=== PATIENT | male | born 1945 | race Caucasian/White ===

== ENCOUNTER 2019-05-12 21:56 | Inpatient (IN) ==
[2019-05-12] MEDS ORDERED: LACTATED RINGERS 1,000 ML IV ONE (22:03)
[2019-05-12] MEDS ORDERED: ONDANSETRON 4 MG/2 ML VIAL IV ONE (22:04)
--- NOTE | 2019-05-12 22:12 | Emergency Department Note ---
General Adult HPI - General Chief complaint: Bleeding Other Stated complaint: blood in vomit Time Seen by Provider: 05/12/19 22:02 Source: patient, family Mode of arrival: ambulatory Limitations: no limitations - History of Present Illness HPI Narrative: This patient had an episode of vomiting tonight that might of been somewhat bloody and has had some black stools after starting iron 3 days ago. He was seen here a week ago with a hemoglobin of 5.8 it was unclear other than iron deficiency. His stool was Hemoccult negative at that time. He did receive 4 units of blood. There was a plan to have endoscopy performed. That has not happened yet. His stool tonight is guaiac positive. He has had no vomiting here in the emergency room. He also has no abdominal pain. - Related Data Home Medications Medication Instructions Recorded Confirmed coenzyme Q10 300 mg capsule 300 mg PO QDAY 06/17/15 05/07/19 glucosamine 125 mg-chondroitn 100 1 tab PO QDAY tab 11/30/16 05/07/19 mg-cartilg 40 mg-colagn 10 mg tablet multivitamin 1 tab PO QDAY 12/05/17 05/07/19 Previous Rx's Medication Instructions Recorded red yeast rice 600 mg tablet 1,200 mg PO QDAY #180 tab 09/22/17 hydrochlorothiazide 12.5 mg capsule 12.5 mg PO QDAY #90 cap 12/06/18 omeprazole 20 mg capsule,delayed 20 mg PO QDAY #90 cap 12/06/18 release Allergies Allergy/AdvReac Type Severity Reaction Status Date / Time ezetimibe [From Zetia] Allergy Unknown Unknown Verified 05/12/19 21:59 fenofibrate Allergy Unknown Unknown Verified 05/12/19 21:59 hydrocodone Allergy Unknown Hallucinati Verified 05/12/19 21:59 ng Ctqgukd-Tjh-Kxs Reductase Allergy Unknown Unknown Verified 05/12/19 21:59 Inhibitor Review of Systems All systems ED: reviewed and negative except as stated. Past Medical History - Past Medical History Surgical history ED: Reports: non-contributory - Social History smoking status: Never smoker Physical Exam Limitations: no limitations General appearance: alert Head: atraumatic Eye: Present: normal appearance ENT: Present: normal exam Neck: Present: normal inspection Chest: Present: normal inspection Respiratory: Present: normal lung sounds bilaterally Cardiovascular: Present: normal rhythm, normal heart sounds Abdominal: Present: soft. Absent: distention, tenderness Rectal: Present: heme (+) stool, black stool. Absent: fecal impaction Neurological: Present: alert Psychiatric: Present: normal affect Skin: Present: warm, dry Course Vital Signs Temperature 97.0 F 05/12/19 21:56 Pulse Rate 90 05/12/19 21:56 Respiratory Rate 16 05/12/19 21:56 Blood Pressure 132/71 05/12/19 21:56 Pulse Oximetry (%) 100 05/12/19 21:56 Temperature 97.0 F 05/12/19 21:56 Pulse Rate 84 05/12/19 23:00 Respiratory Rate 19 05/12/19 23:00 Blood Pressure 107/62 05/12/19 23:00 Pulse Oximetry (%) 95 05/12/19 23:00 Medical Decision Making - MDM Narrative Medical decision making narrative: Patient's hemoglobin is dropped to 7.8 from 9.8 last week. He was given a liter of fluid and felt well. I discussed the case with her surgeon Dr. Kline who is willing to do endoscopy in the morning. Dr. Yeager will admit him. - Lab Data Lab results reviewed: Yes I reviewed the patient's lab results. Result diagrams: 05/12/19 22:13 05/12/19 22:13 Lab Results 05/12/19 05/12/19 Range/Units 22:13 22:13 WBC 8.2 (4.50-11.00) K/mcL RBC 3.32 L (4.63-6.08) M/mcL Hgb 7.8 L (13.7-17.5) g/dL Hct 26.4 L (40.1-51.0) % POC Hct 26.0 L (41.0-55.0) % MCV 79.5 L (80.0-100.0) fL MCH 23.5 L (26.0-34.0) pg MCHC 29.5 L (31.0-36.0) g/dL RDW 21.2 H (11.5-14.5) % Plt Count 306 (140-440) K/mcL MPV 9.2 (7.4-10.4) fL Gran % 75.4 (38.0-78.0) % Lymph % (Auto) 15.5 (15.5-49.0) % [place] % (Auto) 7.7 (1.0-12.0) % Eos % (Auto) 0.7 (0.0-7.0) % Baso % (Auto) 0.7 (0.0-2.0) % Gran # 6.14 (1.80-8.00) K/mcL Lymph # (Auto) 1.26 L (1.50-4.80) K/mcL [place] # (Auto) 0.63 (0.10-0.90) K/mcL Eos # (Auto) 0.06 (0.00-0.70) K/mcL Baso # (Auto) 0.06 (0.00-0.30) K/mcL POC Sodium 141 (133-145) mmol/L Sodium 137 (133-145) mmol/L POC Potassium 4.0 (3.3-5.1) mmol/L Potassium 3.9 (3.3-5.1) mmol/L POC Chloride 105 (96-108) mmol/L Chloride 101 (96-108) mmol/L Carbon Dioxide 25 (22-30) mmol/L POC Total CO2 26 (22-30) mmol/L Anion Gap 11.0 (8-16) POC BUN 25 H (8-23) mg/dl BUN 24 H (8-23) mg/dl Creatinine 1.2 (0.7-1.2) mg/dl POC Creatinine 1.1 (0.7-1.2) mg/dl GFR Calculation 59 Glucose 151 H (70-105) mg/dL POC Glucose 145 H (70-105) mg/dL Calcium 8.5 L (8.6-10.4) mg/dl POC WB Ioniz Calcium 1.17 (1.16-1.32) mmol/L Total Bilirubin 0.3 (0.0-1.0) mg/dL AST 17 (0-37) U/l ALT 13 (0-40) U/l Alkaline Phosphatase 70 (39-117) U/L Total Protein 6.4 (5.9-8.4) gm/dL Albumin 3.9 (3.2-5.2) gm/dL Globulin 2.5 (2.2-3.7) gm/dL Albumin/Globulin Ratio 1.6 (1.0-2.3) Disposition Pt seen by DIRECTOR ADULT/PA only: No Clinical Impression: Upper GI bleeding Disposition: Xfer As Outpt/Obs ([facility]) Condition: Good Referrals: Jermaine Brandon MD [Primary Care Provider] - Time of Disposition: 23:29
[2019-05-12 22:21] LABS: POC Blood Urea Nitrogen 25 mg/dl (8-23); POC CO2 26 mmol/L (22-30); POC Calcium, Ionized 1.17 mmol/L (1.16-1.32); POC Chloride 105 mmol/L (96-108); POC Creatinine 1.1 mg/dl (0.7-1.2); POC Glucose, Random 145 mg/dL (70-105); POC Sodium 141 mmol/L (133-145)
[2019-05-12 23:04] LABS: Basophils # (Auto) 0.06 K/mcL (0.00-0.30); Basophils % (Auto) 0.7 % (0.0-2.0); Eosinophils # (Auto) 0.06 K/mcL (0.00-0.70); Eosinophils % (Auto) 0.7 % (0.0-7.0); Granulocytes % (Auto) 75.4 % (38.0-78.0); Hematocrit 26.4 % (40.1-51.0); Hemoglobin 7.8 g/dL (13.7-17.5); Lymphocytes # (Auto) 1.26 K/mcL (1.50-4.80); Lymphocytes % (Auto) 15.5 % (15.5-49.0); Mean Cell Volume 79.5 fL (80.0-100.0); Mean Corpuscular HGB Conc 29.5 g/dL (31.0-36.0); Mean Platelet Volume 9.2 fL (7.4-10.4); Monocytes # (Auto) 0.63 K/mcL (0.10-0.90); Monocytes % (Auto) 7.7 % (1.0-12.0); Platelet Count 306 K/mcL (140-440); RBC 3.32 M/mcL (4.63-6.08); Red Cell Distribution Width 21.2 % (11.5-14.5); WBC 8.2 K/mcL (4.50-11.00)
[2019-05-12 23:25] LABS: ALT/SGPT 13 U/l (0-40); AST/SGOT 17 U/l (0-37); Albumin 3.9 gm/dL (3.2-5.2); Albumin/Globulin Ratio 1.6 (1.0-2.3); Alkaline Phosphatase 70 U/L (39-117); Bilirubin,Total 0.3 mg/dL (0.0-1.0); Blood Urea Nitrogen 24 mg/dl (8-23); Calcium 8.5 mg/dl (8.6-10.4); Carbon Dioxide 25 mmol/L (22-30); Chloride 101 mmol/L (96-108); Globulin 2.5 gm/dL (2.2-3.7); Glomerular Filtration Rate 59; Glucose 151 mg/dL (70-105)
[2019-05-12] MEDS ORDERED: 0.9 % SODIUM CHLORIDE 250 ML IV SCH (23:30)
--- NOTE | 2019-05-12 23:32 | Internal Med History&Physical ---
Medical - H&P: HPI Patient information: Note initiated : 05/12/19 at 11:32 pm Service Date, if different from initiated Date: [] Patient: Shaq George a 73 y/o M admitted on for blood in vomit. Chief Complaint: [] History of present illness: Mr. George is a 73 year old M with a history of hypertension, hyperlipidemia, iron deficiency anemia who presents the ED with bloody emesis and dark stool. About the end of January, the patient was taking nonsteroidals for patellar tendon issue. Since that time he noticed that he had had cold hands and looked pale. He is also lightheaded and having headaches. This led to further investigation on 05/03 he was found to have a hemoglobin of 5.8, had a CT of the abdomen pelvis without evidence of mass or other concerning findings, and underwent transfusion of 4 units of packed red blood cells in the ED. His stool was heme-negative at that time. On 05/07 he was seen in follow-up and his hemoglobin is 9.8. Iron studies showed 5% saturation he was started on iron. Today the patient had taken his third dose of iron tablets. Tonight he was laying down, felt nauseated and got up to go to the bathroom. About care home there he was lightheaded, had loss of consciousness and fell to the floor. His came up and found him, she tried to assist him to his feet, but he is weak and subsequently had emesis with definite bright red blood mixed with gastric contents from his meal. He also had stool that was dark, his commented that it was quite smelly as well. He presents to the emergency department. Hemodynamics are stable. Hemoglobin is fallen 2 points to 7.8. Patient is being admitted for further evaluation of GI bleed. The patient has been taking ibuprofen to treat his headaches. He took 2 Aleve this evening prior to this event. He generally been taking about 1 nonsteroidal a day towards bedtime to help him sleep because of his chronic mild headache that is persisted. He used to take aspirin, that is been stopped. He is not on anticoagulants. He has no history of liver disease/cirrhosis or portal hypertension. He has had no abdominal pain associated with the events of the evening. He has no pain with meals. Review of systems: No fever, chills. Mild headache (1/10 in intensity), no sore throat. No dyspn ea, no cough or sputum. No chest pain or tightness or squeezing, no lower extremity edema. No dysuria or change in urinary habits. No focal weaknesses. No rashes. No easy bruising or bleeding. No current joint pains. Medical - H&P: [facility] Medical history: Patella, chondromalacia (Acute) Prostate cancer (Chronic) Lipoma (Chronic) 06/01/12 ([place]) Back Closed fracture of lower leg (Chronic) Unspecified bone R leg Hypertension, essential, benign (Chronic) Hyperlipidemia (Chronic) Gastroesophageal reflux (Chronic) Colon polyps (Chronic) Basal cell carcinoma (Chronic 03/21/13) Skin above left ear. Surgical history: History of vasectomy (Chronic) History of prostate biopsy (Chronic) Radiation seed therapy History of colonoscopy (Chronic 05/27/10) Pertinent family history: Mother , at 77y Chronic obstructive pulmonary disease Father , 50yoa Coronary artery disease Myocardial Infarction Social history: marital status: education level: college occupational status: retired other: 2 children/2 gc frequency: other smoking status: Never smoker alcohol intake frequency: 0-2 drinks per day substance use type: does not use Medical - H&P: Meds Home Medications Medication Instructions Recorded Confirmed Type coenzyme Q10 300 mg capsule 300 mg PO QDAY 06/17/15 05/13/19 History glucosamine 125 mg-chondroitn 100 1 tab PO QDAY tab 11/30/16 05/13/19 History mg-cartilg 40 mg-colagn 10 mg tablet red yeast rice 600 mg tablet 1,200 mg PO QDAY #180 tab 09/22/17 05/13/19 Rx multivitamin 1 tab PO QDAY 12/05/17 05/13/19 History hydrochlorothiazide 12.5 mg capsule 12.5 mg PO QDAY #90 cap 12/06/18 05/13/19 Rx omeprazole 20 mg capsule,delayed 20 mg PO QDAY #90 cap 12/06/18 05/13/19 Rx release Ferrous Gluconate [Iron] 236 mg PO DAILY 05/13/19 05/13/19 History Allergies Allergy/AdvReac Type Severity Reaction Status Date / Time ezetimibe [From Zetia] Allergy Unknown Unknown Verified 05/12/19 21:59 fenofibrate Allergy Unknown Unknown Verified 05/12/19 21:59 hydrocodone Allergy Unknown Hallucinati Verified 05/12/19 21:59 ng Mrezejd-Zbd-Qey Reductase Allergy Unknown Unknown Verified 05/12/19 21:59 Inhibitor Medical - H&P: Exam - Constitutional Vitals: Temp Pulse Resp BP Pulse Ox 97.0 F 84 19 107/62 95 05/12/19 21:56 05/12/19 23:00 05/12/19 23:00 05/12/19 23:00 05/12/19 23:00 Exam: GENERAL: Alert, oriented, in no acute distress. Cooperative, appears stated age. HEENT: Atraumatic. PERRL at 5 mm, conjunctiva clear, no scleral icterus. Hearing grossly intact. Oropharynx with moist mucous membranes, no lip or gum lesions, no pharyngeal erythema or exudate. Tongue midline, palate rises symmetrically. NECK: Supple without meningismus, no thyromegaly RESPIRATORY: Breath sounds clear bilaterally without wheezes or rhonchi. Respiratory effort is unlabored. CARDIOVASCULAR: Regular rate and rhythm, no murmur gallop or rub. No peripheral edema. Carotid pulses 2+ without bruit. GI: Abdomen soft, no epigastric or other tenderness, no guarding or rebound. Bowel sounds are present. No hepatosplenomegaly. MUSCULOSKELETAL: No joint erythema or swelling, normal range of motion in all extremities. SKIN: Warm, dry, somewhat pale. Skin turgor normal. NEUROLOGIC: Cranial nerves II through XII grossly intact. Muscle mass normal. Strength 5/5 in the upper and lower extremities. Sensation intact to light touch bilaterally. PSYCHIATRIC: Alert, oriented x3, normal mood and affect, normal insight. Medical - H&P: Reslt - Labs CBC & Chem 7: 05/12/19 22:13 05/12/19 22:13 Labs: Short CBC 05/12/19 Range/Units 22:13 WBC 8.2 (4.50-11.00) K/mcL Hgb 7.8 L (13.7-17.5) g/dL Hct 26.4 L (40.1-51.0) % Plt Count 306 (140-440) K/mcL BMP 05/12/19 22:13 Sodium 137 Potassium 3.9 Chloride 101 Carbon Dioxide 25 BUN 24 H Creatinine 1.2 Glucose 151 H Calcium 8.5 L Liver Function 05/12/19 Range/Units 22:13 Total Bilirubin 0.3 (0.0-1.0) mg/dL AST 17 (0-37) U/l ALT 13 (0-40) U/l Alkaline Phosphatase 70 (39-117) U/L Albumin 3.9 (3.2-5.2) gm/dL - EKG Data -: EKG Reviewed by Myself (Sinus rhythm at 83, [facility], no acute ST changes) Medical - H&P: A/P - Narrative A/P Narrative: 73-year-old male presents with hematemesis and dark stools after previously being found with iron deficiency anemia requiring transfusion of 4 units of blood. #Upper GI bleed. Patient with tommy hematemesis today. This was associated with lightheadedness and syncope when he had mendoza to try to get to the bathroom due to nausea. About the time he had the emesis, he also had looser stool which was dark, his noted that it had a strong odor when asked. He had taken 3 doses of iron prior to that. Stool was heme positive in the ED, scant stool in the rectal vault, per Dr. Ortiz. Patient has been using NSAIDs for persistent low-grade headache, generally 1 dose a day. He does take omeprazole. No history of liver disease or prior gastritis/PUD. #Hypertension. Patient's blood pressure is normal without tachycardia. Only on HCTZ for blood pressure at baseline. Plan: Hospitalized on observation [facility] with telemetry monitoring Protonix 40 mg twice daily, given IV N.p.o. Type and cross sent by the ED Serial H/H, next check with a.m. labs Consultation to Dr. Kline for upper endoscopy Prophylaxis: SCDs CODE STATUS: Full code
[2019-05-13] MEDS ORDERED: PANTOPRAZOLE 40 MG VIAL IV ONE ×3 (00:23→07:06)
[2019-05-13] MEDS ORDERED: ONDANSETRON 4 MG/2 ML VIAL IV PRN ×2 (00:23→16:08)
[2019-05-13] MEDS: LACTATED RINGERS 1,000 ML IV SCH ×3 (00:45→17:35)
[2019-05-13] MEDS: 0.9 % SODIUM CHLORIDE 10 ML SYRINGE IV SCH ×3 (05:06→21:09)
[2019-05-13 06:53] LABS: Basophils # (Auto) 0.04 K/mcL (0.00-0.30); Basophils % (Auto) 0.7 % (0.0-2.0); Eosinophils # (Auto) 0.01 K/mcL (0.00-0.70); Eosinophils % (Auto) 0.2 % (0.0-7.0); Granulocytes % (Auto) 67.4 % (38.0-78.0); Hematocrit 22.8 % (40.1-51.0); Hemoglobin 6.7 g/dL (13.7-17.5); Lymphocytes # (Auto) 1.16 K/mcL (1.50-4.80); Lymphocytes % (Auto) 21.4 % (15.5-49.0); Mean Cell Volume 78.4 fL (80.0-100.0); Mean Corpuscular HGB Conc 29.4 g/dL (31.0-36.0); Mean Platelet Volume 9.2 fL (7.4-10.4); Monocytes # (Auto) 0.56 K/mcL (0.10-0.90); Monocytes % (Auto) 10.3 % (1.0-12.0); Platelet Count 266 K/mcL (140-440); RBC 2.91 M/mcL (4.63-6.08); Red Cell Distribution Width 21.7 % (11.5-14.5); WBC 5.4 K/mcL (4.50-11.00)
[2019-05-13 07:02] LABS: ALT/SGPT 11 U/l (0-40); AST/SGOT 13 U/l (0-37); Albumin 3.4 gm/dL (3.2-5.2); Albumin/Globulin Ratio 1.5 (1.0-2.3); Alkaline Phosphatase 61 U/L (39-117); Bilirubin,Direct < 0.2 mg/dL (0.0-0.3); Bilirubin,Total 0.2 mg/dL (0.0-1.0); Calcium 8.5 mg/dl (8.6-10.4); Carbon Dioxide 28 mmol/L (22-30); Chloride 104 mmol/L (96-108); Globulin 2.3 gm/dL (2.2-3.7); Glomerular Filtration Rate 87; Glucose 113 mg/dL (70-105); Lactate Dehydrogenase 115 U/L (94-250); Phosphorous 2.9 mg/dL (2.7-4.5); Triglycerides 158 mg/dl (<150); Uric Acid 4.9 mg/dL (2.5-8.0)
[2019-05-13 07:10] LABS: Blood Urea Nitrogen 30 mg/dl (8-23)
[2019-05-13] MEDS ORDERED: 0.9 % SODIUM CHLORIDE 250 ML IV SCH ×2 (07:15→16:08)
[2019-05-13] MEDS ORDERED: PANTOPRAZOLE 40 MG VIAL IV SCH (07:30)
[2019-05-13] MEDS ORDERED: PANTOPRAZOLE 80 MG in 0.9 % SODIUM CHLORIDE 100 ML IV SCH (08:00)
--- NOTE | 2019-05-13 10:46 | Internal Med Progress Note ---
Medical - PN: Subj Patient information: Note initiated : 05/13/19 at 10:44 am Service Date, if different from initiated Date: [] Patient: Shaq George a 73 y/o M admitted on 05/13/19 for blood in vomit. Chief Complaint: [] Interval history: 05/11 Mr. George is a 73 year old M with a history of hypertension, hyperlipidemia, iron deficiency anemia who presents the ED with bloody emesis and dark stool. About the end of January, the patient was taking nonsteroidals for patellar tendon issue. Since that time he noticed that he had had cold hands and looked pale. He is also lightheaded and having headaches. This led to further investigation on 05/03 he was found to have a hemoglobin of 5.8, had a CT of the abdomen pelvis without evidence of mass or other concerning findings, and underwent transfusion of 4 units of packed red blood cells in the ED. His stool was heme-negative at that time. On 05/07 he was seen in follow-up and his hemoglobin is 9.8. Iron studies showed 5% saturation he was started on iron. Today the patient had taken his third dose of iron tablets. Tonight he was laying down, felt nauseated and got up to go to the bathroom. About senior care there he was lightheaded, had loss of consciousness and fell to the floor. His came up and found him, she tried to assist him to his feet, but he is weak and subsequently had emesis with definite bright red blood mixed with gastric contents from his meal. He also had stool that was dark, his commented that it was quite smelly as well. He presents to the emergency department. Hemodynamics are stable. Hemoglobin is fallen 2 points to 7.8. Patient is being admitted for further evaluation of GI bleed. The patient has been taking ibuprofen to treat his headaches. He took 2 Aleve this evening prior to this event. He generally been taking about 1 nonsteroidal a day towards bedtime to help him sleep because of his chronic mild headache that is persisted. He used to take aspirin, that is been stopped. He is not on anticoagulants. He has no history of liver disease/cirrhosis or portal hypertension. He has had no abdominal pain associated with the events of the evening. He has no pain with meals. 05/12 No complaints. No abdominal pain. Has not passed any further stools. Hemoglobin is dropped to 6.7 today. Patient agreeable to further transfusion. Awaiting EGD. Pertinent ROS: Still with mild headache. No dyspnea, no chest pain. No abdominal pain. - Constitutional Vitals: Vital Signs Temp Pulse Resp BP Pulse Ox 99.2 F H 84 12 122/72 98 05/13/19 08:00 05/13/19 08:00 05/13/19 08:00 05/13/19 08:00 05/13/19 08:00 Period Temp Pulse Resp BP Sys/Patel Pulse Ox Last 24 Hr 97.0 F-99.2 F 83-90 12-21 103-132/62-74 94-100 Intake and Output 05/12/19 05/13/19 05/13/19 21:59 05:59 13:59 Intake Total 1000 Output Total 850 420 Balance 150 -420 Weight 191 lb 196 lb 1.6 oz Intake & Output: Intake & Output 05/12/19 05/13/19 05/13/19 21:59 05:59 13:59 Intake Total 1000 Output Total 850 420 Balance 150 -420 Weight 191 lb 196 lb 1.6 oz Intake: IV 1000 Lactated Ringers 1,000 ml @ 1000 Wide Open IV BOLUS ONE Rx#: [id number] Output: Void Amount 850 420 Other: Urine Appearance Clear Clear Urine Color Bright Yellow Bright Yellow Urine Odor Normal General appearance: no acute distress - Respiratory Respiratory exam: Present: CTAB - Cardiovascular Cardiovascular exam: Present: normal rate and rhythm - GI/Abdominal GI/Abdominal exam: Present: normal bowel sounds, soft. Absent: guarding, hyperactive bowel sounds, tenderness - Extremities Exam Extremities exam: Absent: pedal edema - Neurological Exam Neurological exam: Present: alert, oriented X3. Absent: motor sensory deficit Medical - PN: Obj Da - Labs CBC & Chem 7: 05/13/19 05:41 05/13/19 05:41 Labs: Abnormal Lab Results 05/13/19 05/13/19 05/12/19 05:41 05:41 22:13 RBC 2.91 L 3.32 L Hgb 6.7 L* 7.8 L Hct 22.8 L 26.4 L POC Hct MCV 78.4 L 79.5 L MCH 23.0 L 23.5 L MCHC 29.4 L 29.5 L RDW 21.7 H 21.2 H Lymph # (Auto) 1.16 L 1.26 L POC BUN BUN 30 H Glucose 113 H POC Glucose Calcium 8.5 L Total Protein 5.7 L Triglycerides 158 H 05/12/19 22:13 RBC Hgb Hct POC Hct 26.0 L MCV MCH MCHC RDW Lymph # (Auto) POC BUN 25 H BUN 24 H Glucose 151 H POC Glucose 145 H Calcium 8.5 L Total Protein Triglycerides Meds: Medications Lactated Ringer's (Lactated Ringers) 1,000 mls @ 75 mls/hr IV .[id number] [facility] Last Admin: 05/13/19 00:45 Dose: 75 mls/hr Documented by: Pantoprazole Sodium 80 mg/ (Sodium Chloride) 100 mls @ 10 mls/hr IV Q10H [facility] Last Admin: 05/13/19 09:01 Dose: 8 mg/hr, 10 mls/hr Documented by: Sodium Chloride (Sodium Chloride 0.9%) 250 mls @ 20 mls/hr IV .[id number] [facility] Stop: 05/13/19 19:44 Last Admin: 05/13/19 07:53 Dose: 20 mls/hr Documented by: Ondansetron HCl (Zofran) 4 mg IV Q6HP PRN PRN Reason: Nausea And Vomiting Sodium Chloride (Saline Flush) 10 ml IV Q8 [facility] Last Admin: 05/13/19 05:06 Dose: Not Given Documented by: Medical - PN: A/P - Time Spent With Patient Total time spent is greater than 50% in coordination of care (as documented) at patient's floor/unit and/or counseling patient: - Narrative A/P Narrative: 73-year-old male presents with hematemesis and dark stools after previously being found with iron deficiency anemia requiring transfusion of 4 units of b lood. #Upper GI bleed. Worsening. Hemoglobin dropped from 7.8-6.7 overnight. Patient with tommy hematemesis and on day of presentation, associated with lightheadedness and syncope when he had mendoza to try to get to the bathroom due to nausea. At the time he had the emesis, he also had looser stool which was dark, his noted that it had a strong odor when asked. He had taken 3 doses of iron prior to that. Stool was heme positive in the ED, scant stool in the rectal vault, per Dr. Ortiz. Patient has been using NSAIDs for persistent low- grade headache, generally 1 dose a day. He does take omeprazole. No history of liver disease or prior gastritis/PUD. #Hypertension. Patient's blood pressure is normal without tachycardia. Only on HCTZ for blood pressure at baseline. Plan: Transfused 2 units of packed cells Change from Protonix 40 mg twice daily to 80 mg bolus with 8 mg/hour infusion N.p.o. Serial H/H, next check after current transfusion Consultation to Dr. Kline for upper endoscopy today Disposition pending findings on EGD and risk of ongoing hemorrhage Prophylaxis: SCDs CODE STATUS: Full code Medical - PN: Qual - VTE Deep Vein Thrombosis/Pulmonary Embolism Present on Admission: No
--- NOTE | 2019-05-13 12:52 | General Surg History&Physical ---
History of Present Illness Patient information: Note initiated : 05/13/19 at 12:47 pm Service Date, if different from initiated Date: [] Patient: Shaq George 73 y/o M admitted on 05/13/19 for blood in vomit. Chief Complaint: [] HPI: , 73-year-old male admitted for upper GI bleed and post blood loss anemia. The patient started having lightheaded feelings on 03 May. He felt weak with headache and had some shortness of breath with activity. He was seen by his primary care provider and blood was drawn which showed a hemoglobin of 5.8. A CT of abdomen was done and was negative for pathologic findings. He was transfused 4 units of packed red cells. He was seen again on the and was feeling weak but otherwise felt unremarkable. Stool guaiacs have been negative during this time. On may, he developed nausea with profound weakness and had a syncopal episode with him, hematemesis, and incontinence of melena. On evaluation he was noted to have a hemoglobin of 7.8. He was seen in the emergency room and admitted. His hemoglobin dropped to 6.7 overnight and he's been transfused 2 units of packed red cells. At this time he is asymptomatic. On close questioning, patient has been taken frequent nonsteroidals over the past 2 weeks for headache. He also took some etodolac for right knee pain about 2 weeks ago. Patient is seen and is counseled for upper endoscopy. Review of Systems All systems PM: reviewed and no additional remarkable complaints except as stated (negative except as noted below) - Constitutional headache(s) - Musculoskeletal other (, right knee pain) Past History Past medical history: hypertension Gastroesophageal reflux disease. History of colon polyps. History prostate cancer Past surgical history: No surgical procedure noted Past family history: Mother age 77 due to complications of COPD Follow-up age 50 due to [place] Past social history: Never smoker. Uses 2 alcoholic beverages per day. Denies drug use Medications and Allergies Home Medications Medication Instructions Recorded Confirmed Type coenzyme Q10 300 mg capsule 300 mg PO QDAY 06/17/15 05/13/19 History glucosamine 125 mg-chondroitn 100 1 tab PO QDAY tab 11/30/16 05/13/19 History mg-cartilg 40 mg-colagn 10 mg tablet red yeast rice 600 mg tablet 1,200 mg PO QDAY #180 tab 09/22/17 05/13/19 Rx multivitamin 1 tab PO QDAY 12/05/17 05/13/19 History hydrochlorothiazide 12.5 mg capsule 12.5 mg PO QDAY #90 cap 12/06/18 05/13/19 Rx omeprazole 20 mg capsule,delayed 20 mg PO QDAY #90 cap 12/06/18 05/13/19 Rx release Ferrous Gluconate [Iron] 236 mg PO DAILY 05/13/19 05/13/19 History Allergies Allergy/AdvReac Type Severity Reaction Status Date / Time ezetimibe [From Zetia] Allergy Unknown Unknown Verified 05/12/19 21:59 fenofibrate Allergy Unknown Unknown Verified 05/12/19 21:59 Viuqrii-Irb-Jby Reductase Allergy Unknown Unknown Verified 05/12/19 21:59 Inhibitor hydrocodone AdvReac Mild Hallucinati Verified 05/13/19 07:12 ng Exam Temp Pulse Resp BP Pulse Ox 98.7 F 93 H 14 118/74 99 05/13/19 12:00 05/13/19 12:00 05/13/19 12:00 05/13/19 12:00 05/13/19 12:00 - General physical appearance well developed, well nourished, no distress - Eyes PERRL, normal ocular movement - ENT normal pinna, normal nares, normal mucosa, no hearing loss, no congestion - Head Head exam IM: Present: atraumatic, normocephalic - Neck no masses, no bruits, trachea midline, no lymphadenopathy, no venous distension - Cardiovascular Cardiovascular exam IM: Present: normal rate and rhythm, RRR, +S1, +S2. Absent: JVD, tachycardia - Respiratory normal expansion, normal respiratory effort, clear to auscultation - Abdomen Abdomen: Present: soft, non tender (no epigastric tenderness noted), bowel sounds Hernia: Present: none - Genitourinary Present: normal penis with no external lesions - Integumentary Present: no rash, no growths, no abnormal pigmentation - Neurologic Present: normal coordination, normal sensation - Musculoskeletal Present: normal gait, normal posture - Psychiatric Present: oriented to time, oriented to person, oriented to place, speech is normal, memory intact Assessment and Plan (1) Iron deficiency anemia due to chronic blood loss Will transfuse to hemoglobin above 9 Status: Acute (2) Upper GI bleeding PPI and sulfate therapy. Upper endoscopy with interventional treatment for bleeding as needed Status: Acute (3) History of prostate biopsy Status: Chronic Comment: Radiation seed therapy (4) Hypertension, essential, benign Status: Chronic (5) Gastroesophageal reflux Status: Chronic
--- NOTE | 2019-05-13 14:30 | Internal Med Progress Note ---
Medical - PN: Subj Patient information: Note initiated : 05/13/19 at 2:28 pm Service Date, if different from initiated Date: [] Patient: Shaq George a 73 y/o M admitted on 05/13/19 for blood in vomit. Chief Complaint: [] Interval history: 05/11 Mr. George is a 73 year old M with a history of hypertension, hyperlipidemia, iron deficiency anemia who presents the ED with bloody emesis and dark stool. About the end of January, the patient was taking nonsteroidals for patellar tendon issue. Since that time he noticed that he had had cold hands and looked pale. He is also lightheaded and having headaches. This led to further investigation on 05/03 he was found to have a hemoglobin of 5.8, had a CT of the abdomen pelvis without evidence of mass or other concerning findings, and underwent transfusion of 4 units of packed red blood cells in the ED. His stool was heme-negative at that time. On 05/07 he was seen in follow-up and his hemoglobin is 9.8. Iron studies showed 5% saturation he was started on iron. Today the patient had taken his third dose of iron tablets. Tonight he was laying down, felt nauseated and got up to go to the bathroom. About shelter there he was lightheaded, had loss of consciousness and fell to the floor. His came up and found him, she tried to assist him to his feet, but he is weak and subsequently had emesis with definite bright red blood mixed with gastric contents from his meal. He also had stool that was dark, his commented that it was quite smelly as well. He presents to the emergency department. Hemodynamics are stable. Hemoglobin is fallen 2 points to 7.8. Patient is being admitted for further evaluation of GI bleed. The patient has been taking ibuprofen to treat his headaches. He took 2 Aleve this evening prior to this event. He generally been taking about 1 nonsteroidal a day towards bedtime to help him sleep because of his chronic mild headache that is persisted. He used to take aspirin, that is been stopped. He is not on anticoagulants. He has no history of liver disease/cirrhosis or portal hypertension. He has had no abdominal pain associated with the events of the evening. He has no pain with meals. 05/12 No complaints. No abdominal pain. Has not passed any further stools. Hemoglobin is dropped to 6.7 today. Patient agreeable to further transfusion. Awaiting EGD. - Constitutional Vitals: Vital Signs Temp Pulse Resp BP Pulse Ox 98.7 F 93 H 14 118/74 99 05/13/19 12:00 05/13/19 12:00 05/13/19 12:00 05/13/19 12:00 05/13/19 12:00 Period Temp Pulse Resp BP Sys/Patel Pulse Ox Last 24 Hr 97.0 F-99.2 F 83-93 12-21 103-132/62-74 94-100 Intake and Output 05/13/19 05/13/19 05/13/19 05:59 13:59 21:59 Intake Total 1000 1264 Output Total 850 1170 Balance 150 94 Weight 88.949 kg Intake & Output: Intake & Output 05/13/19 05/13/19 05/13/19 05:59 13:59 21:59 Intake Total 1000 1264 Output Total 850 1170 Balance 150 94 Weight 88.949 kg Intake: IV 1000 939 Lactated Ringers 1,000 ml @ 75 1000 939 mls/hr IV .[id number] [facility] Rx#: [id number] Blood Product 325 Output: Void Amount 850 1170 Other: Urine Appearance Clear Clear Urine Color Bright Yellow Bright Yellow Urine Odor Normal Normal Exam: General: Alert, Awake, No acute Distress Eyes/N/T: EOMI, Head/Neck: neck supple, CV: RRR, No murmurs, Pulm: Clear b/l, no wheezing/rhonchi/rales Abd: soft, nontender, +BS x4 Ext: no clubbing/cyanosis/edema Neuro: Alert, no focal deficits, moves all extremities, Skin: warm/dry Medical - PN: Obj Da - Labs CBC & Chem 7: 05/13/19 18:30 05/13/19 05:41 Labs: Abnormal Lab Results 05/13/19 05/13/19 05/12/19 05:41 05:41 22:13 RBC 2.91 L 3.32 L Hgb 6.7 L* 7.8 L Hct 22.8 L 26.4 L POC Hct MCV 78.4 L 79.5 L MCH 23.0 L 23.5 L MCHC 29.4 L 29.5 L RDW 21.7 H 21.2 H Lymph # (Auto) 1.16 L 1.26 L POC BUN BUN 30 H Glucose 113 H POC Glucose Calcium 8.5 L Total Protein 5.7 L Triglycerides 158 H 05/12/19 22:13 RBC Hgb Hct POC Hct 26.0 L MCV MCH MCHC RDW Lymph # (Auto) POC BUN 25 H BUN 24 H Glucose 151 H POC Glucose 145 H Calcium 8.5 L Total Protein Triglycerides Meds: Medications Lactated Ringer's (Lactated Ringers) 1,000 mls @ 75 mls/hr IV .[id number] [facility] Last Admin: 05/13/19 13:16 Dose: 75 mls/hr Documented by: Pantoprazole Sodium 80 mg/ (Sodium Chloride) 100 mls @ 10 mls/hr IV Q10H [facility] Last Admin: 05/13/19 09:01 Dose: 8 mg/hr, 10 mls/hr Documented by: Sodium Chloride (Sodium Chloride 0.9%) 250 mls @ 20 mls/hr IV .[id number] [facility] Stop: 05/13/19 19:44 Last Admin: 05/13/19 07:53 Dose: 20 mls/hr Documented by: Ondansetron HCl (Zofran) 4 mg IV Q6HP PRN PRN Reason: Nausea And Vomiting Sodium Chloride (Saline Flush) 10 ml IV Q8 [facility] Last Admin: 05/13/19 05:06 Dose: Not Given Documented by: Medical - PN: A/P - Time Spent With Patient Total time spent is greater than 50% in coordination of care (as documented) at patient's floor/unit and/or counseling patient: - Narrative A/P Narrative: A: *Upper GI bleed: tommy hematemesis and on day of presentation, associated with lightheadedness and syncope when he arose to get to the bathroom -had taken 3 doses of iron prior to that. Stool was heme positive in the ED, scant stool in the rectal vault, per Dr. Ortiz. -Patient has been using NSAIDs for persistent low-grade headache, generally 1 dose a day. He does take omeprazole. *acute blood loss anemia: *HTN: Patient's blood pressure is normal without tachycardia. Only on HCTZ for blood pressure at baseline. Plan: Transfused 2 units of packed cells Protonix gtt N.p.o. Serial H/H, next check after current transfusion Dr. Kline for upper endoscopy today Disposition pending findings on EGD and risk of ongoing hemorrhage -Prophylaxis: SCDs CODE STATUS: Full code Medical - PN: Qual - VTE Deep Vein Thrombosis/Pulmonary Embolism Present on Admission: No
[2019-05-13] MEDS ORDERED: GLYCOPYRROLATE 0.2 MG/ML VIAL IV ONE (15:14)
[2019-05-13] MEDS ORDERED: PROPOFOL 200 MG/20 ML VIAL IV ONE (15:14)
[2019-05-13] MEDS ORDERED: LIDOCAINE HCL/PF 100 MG/5 ML SYRINGE IV ONE (15:14)
--- NOTE | 2019-05-13 15:53 | Brief Operative Note ---
Date of procedure: 05/13/19 Pre-op diagnosis: gastrointestinal bleeding with melena Post-op diagnosis: other (ge junction inflammation with superficial linear ulceration,fundic gland polyps;antral gastritis with erosions x3; mild duodenitis) Procedure: EGD WIT BIOPSIES AND JONO TEST Grafts/Implants: No Anesthesia: other (GENERAL) Findings: NOTED ABOVE ; NO SOURCE OF POTENTIAL MAJOR BLEED NOTED OUT TO 4TH PORTION OF DUODENUM Complications: none Surgeon: Daljit Kline Specimens Removed/Pathology: other (GASTRIC ANTRUM BIOPSIES FOR ROUTINE BIOPSY AND JONO TEST) Condition: stable Disposition: PACU
[2019-05-13 17:03] LABS: Hematocrit 28.6 % (40.1-51.0); Hemoglobin 8.8 g/dL (13.7-17.5)
[2019-05-13] MEDS: SUCRALFATE 1 GM/10 ML ORAL.SUSP PO SCH (17:34)
[2019-05-13] MEDS: PANTOPRAZOLE 80 MG in 0.9 % SODIUM CHLORIDE 100 ML IV SCH (18:39)
--- NOTE | 2019-05-13 20:49 | Discharge Summary ---
Medical - DS: Prov Patient information: Note initiated : 05/13/19 at 8:45 pm Service Date, if different from initiated Date: [] Patient: Shaq George 73 y/o M admitted on 05/13/19 for blood in vomit. Chief Complaint: [] Date of admission: 05/13/19 13:35 Discharge date: 05/14/19 Primary care physician: Jermaine Brandon Consults: 05/13/19 Consult to Physician [CONS] Stat Comment: Consulting Provider: Guillermina Montague Reason For Exam: Physician to Consult Consult to Physician [CONS] Stat Comment: Consulting Provider: Daljit Kline Reason For Exam: Physician to Consult Medical - DS: Meds - Discharge Medications Prescriptions: Omeprazole 40 mg PO QDAY #30 cap Active and Home Medications: Home Medications coenzyme Q10 300 mg capsule 300 mg PO QDAY 06/17/15 [History Confirmed 05/13/19 Last Taken Unknown] glucosamine 125 mg-chondroitn 100 mg-cartilg 40 mg-colagn 10 mg tablet 1 tab PO QDAY tab 11/30/16 [History Confirmed 05/13/19 Last Taken Unknown] red yeast rice 600 mg tablet 1,200 mg PO QDAY #180 tab 09/22/17 [Rx Confirmed 05/13/19 Last Taken Unknown] multivitamin 1 tab PO QDAY 12/05/17 [History Confirmed 05/13/19 Last Taken Unknown] hydrochlorothiazide 12.5 mg capsule 12.5 mg PO QDAY #90 cap 12/06/18 [Rx Confirmed 05/13/19 Last Taken Unknown] omeprazole 20 mg capsule,delayed release 20 mg PO QDAY #90 cap 12/06/18 [Rx Confirmed 05/13/19 Last Taken Unknown] Ferrous Gluconate [Iron] 236 mg PO DAILY 05/13/19 [History Confirmed 05/13/19 Last Taken Unknown] Home Medications coenzyme Q10 300 mg capsule 300 mg PO QDAY 06/17/15 [History Confirmed 05/13/19 Last Taken Unknown] glucosamine 125 mg-chondroitn 100 mg-cartilg 40 mg-colagn 10 mg tablet 1 tab PO QDAY tab 11/30/16 [History Confirmed 05/13/19 Last Taken Unknown] red yeast rice 600 mg tablet 1,200 mg PO QDAY #180 tab 09/22/17 [Rx Confirmed 05/13/19 Last Taken Unknown] multivitamin 1 tab PO QDAY 12/05/17 [History Confirmed 05/13/19 Last Taken Unknown] hydrochlorothiazide 12.5 mg capsule 12.5 mg PO QDAY #90 cap 12/06/18 [Rx Confirmed 05/13/19 Last Taken Unknown] Ferrous Gluconate [Iron] 236 mg PO DAILY 05/13/19 [History Confirmed 05/13/19 Last Taken Unknown] Omeprazole 40 mg PO QDAY #30 cap 05/13/19 [Rx Last Taken Unknown] Omeprazole temporarily increased to 40mg daily for 30 days then may go back to 20mg daily thereafter Hold baby aspirin for now No NSAIDS Medical - DS: Hosp Hospital Course: 05/11 Mr. George is a 73 year old M with a history of hypertension, hyperlipidemia, iron deficiency anemia who presents the ED with bloody emesis and dark stool. About the end of January, the patient was taking nonsteroidals for patellar tendon issue. Since that time he noticed that he had had cold hands and looked pale. He is also lightheaded and having headaches. This led to further investigation on 05/03 he was found to have a hemoglobin of 5.8, had a CT of the abdomen pelvis without evidence of mass or other concerning findings, and underwent transfusion of 4 units of packed red blood cells in the ED. His stool was heme-negative at that time. On 05/07 he was seen in follow-up and his hemoglobin is 9.8. Iron studies showed 5% saturation he was started on iron. Today the patient had taken his third dose of iron tablets. Tonight he was laying down, felt nauseated and got up to go to the bathroom. [facility] he was lightheaded, had loss of consciousness and fell to the floor. His came up and found him, she tried to assist him to his feet, but he is weak and subsequently had emesis with definite bright red blood mixed with gastric contents from his meal. He also had stool that was dark, his commented that it was quite smelly as well. He presents to the emergency department. Hemodynamics are stable. Hemoglobin is fallen 2 points to 7.8. Patient is being admitted for further evaluation of GI bleed. The patient has been taking ibuprofen to treat his headaches. He took 2 Aleve this evening prior to this event. He generally been taking about 1 nonsteroidal a day towards bedtime to help him sleep because of his chronic mild headache that is persisted. He used to take aspirin, that is been stopped. He is not on anticoagulants. He has no history of liver disease/cirrhosis or portal hypertension. He has had no abdominal pain associated with the events of the evening. He has no pain with meals. 05/12 No complaints. No abdominal pain. Has not passed any further stools. Hemoglobin is dropped to 6.7 today. Patient agreeable to further transfusion. Awaiting EGD. 05/13 Slept all right. Feeling well. No new complaints. Hemoglobin dropped a little bit today to 8.0, suspected lesional component from continued IV fluids which have now been DC'd this morning. No melena/diarrhea/hematemesis. Patient to follow-up with gastroenterology for possible PillCam study. A: *Upper GI bleed: tommy hematemesis and on day of presentation, associated with lightheadedness and syncope when he arose to get to the bathroom -had taken 3 doses of iron prior to that. Stool was heme positive in the ED, scant stool in the rectal vault, per Dr. Ortiz. -Patient has been using NSAIDs for what sound like tension headaches, generally 1 dose a day. He does take omeprazole. *Acute blood loss anemia: *HTN: Patient's blood pressure is normal without tachycardia. Only on HCTZ for blood pressure at baseline. Discharge diagnosis: Upper GI bleed, anemia hypertension - Time Spent with Patient Total time spent providing and/or coordinating discharge services: Greater than 30 minutes Medical - DS: Exam - Constitutional Vitals: Vital Signs Temp Pulse Pulse Resp BP BP Pulse Ox 05/13/19 16:00 98.2 F 14 131/80 97 05/13/19 14:48 99.8 F H 87 14 127/73 97 05/13/19 12:00 98.7 F 93 H 14 118/74 99 05/13/19 08:00 99.2 F H 84 12 122/72 98 05/13/19 04:26 98.5 F 88 18 111/67 97 05/13/19 00:21 99.0 F 84 16 111/66 113/68 98 05/13/19 00:15 84 20 111/66 97 05/13/19 00:00 85 18 116/69 97 05/12/19 23:45 85 18 124/74 98 05/12/19 23:31 83 19 111/65 98 05/12/19 23:15 85 21 114/63 97 05/12/19 23:00 84 19 107/62 95 05/12/19 22:45 88 19 106/62 94 05/12/19 22:44 87 16 97 05/12/19 22:30 88 19 103/65 96 05/12/19 22:07 20 132/71 05/12/19 21:56 97.0 F 90 16 132/71 100 Intake and Output 05/13/19 05/13/19 05/13/19 05:59 13:59 21:59 Intake Total 1000 1264 720 Output Total 850 1170 800 Balance 150 94 -80 Intake: IV 1000 939 Lactated Ringers 1,000 ml @ 75 1000 939 mls/hr IV .[id number] [facility] Rx#: [id number] Oral 720 Blood Product 325 Output: Void Amount 850 1170 800 Other: Meal Dinner Percent of Meal Consumed 100% Urine Appearance Clear Clear Clear Urine Color Bright Yellow Bright Yellow Bright Yellow Urine Odor Normal Normal Normal Weight 88.949 kg 89.046 kg Patient Weight 05/14/19 05:59 Weight 89.046 kg Medical - DS: Data Labs on day of discharge: Labs from last 24 hours 05/13/19 05/13/19 05/13/19 18:30 13:55 13:55 WBC RBC Hgb 9.0 L 8.8 L Pending Hct 29.0 L 28.6 L Pending POC Hct MCV MCH MCHC RDW Plt Count MPV Gran % Lymph % (Auto) Norman % (Auto) Eos % (Auto) Baso % (Auto) Gran # Lymph # (Auto) Norman # (Auto) Eos # (Auto) Baso # (Auto) POC Sodium Sodium POC Potassium Potassium POC Chloride Chloride Carbon Dioxide POC Total CO2 Anion Gap POC BUN BUN Creatinine POC Creatinine GFR Calculation Glucose POC Glucose Uric Acid Calcium POC WB Ioniz Calcium Phosphorus Magnesium Total Bilirubin Direct Bilirubin GGT AST ALT Alkaline Phosphatase Lactate Dehydrogenase Total Protein Albumin Globulin Albumin/Globulin Ratio Triglycerides 05/13/19 05/13/19 05/12/19 05:41 05:41 22:13 WBC 5.4 8.2 RBC 2.91 L 3.32 L Hgb 6.7 L* 7.8 L Hct 22.8 L 26.4 L POC Hct MCV 78.4 L 79.5 L MCH 23.0 L 23.5 L MCHC 29.4 L 29.5 L RDW 21.7 H 21.2 H Plt Count 266 306 MPV 9.2 9.2 Gran % 67.4 75.4 Lymph % (Auto) 21.4 15.5 Norman % (Auto) 10.3 7.7 Eos % (Auto) 0.2 0.7 Baso % (Auto) 0.7 0.7 Gran # 3.65 6.14 Lymph # (Auto) 1.16 L 1.26 L Norman # (Auto) 0.56 0.63 Eos # (Auto) 0.01 0.06 Baso # (Auto) 0.04 0.06 POC Sodium Sodium 141 POC Potassium Potassium 4.2 POC Chloride Chloride 104 Carbon Dioxide 28 POC Total CO2 Anion Gap 9.0 POC BUN BUN 30 H Creatinine 0.8 POC Creatinine GFR Calculation 87 Glucose 113 H POC Glucose Uric Acid 4.9 Calcium 8.5 L POC WB Ioniz Calcium Phosphorus 2.9 Magnesium 2.0 Total Bilirubin 0.2 Direct Bilirubin < 0.2 GGT 18 AST 13 ALT 11 Alkaline Phosphatase 61 Lactate Dehydrogenase 115 Total Protein 5.7 L Albumin 3.4 Globulin 2.3 Albumin/Globulin Ratio 1.5 Triglycerides 158 H 05/12/19 22:13 WBC RBC Hgb Hct POC Hct 26.0 L MCV MCH MCHC RDW Plt Count MPV Gran % Lymph % (Auto) Norman % (Auto) Eos % (Auto) Baso % (Auto) Gran # Lymph # (Auto) Norman # (Auto) Eos # (Auto) Baso # (Auto) POC Sodium 141 Sodium 137 POC Potassium 4.0 Potassium 3.9 POC Chloride 105 Chloride 101 Carbon Dioxide 25 POC Total CO2 26 Anion Gap 11.0 POC BUN 25 H BUN 24 H Creatinine 1.2 POC Creatinine 1.1 GFR Calculation 59 Glucose 151 H POC Glucose 145 H Uric Acid Calcium 8.5 L POC WB Ioniz Calcium 1.17 Phosphorus Magnesium Total Bilirubin 0.3 Direct Bilirubin GGT AST 17 ALT 13 Alkaline Phosphatase 70 Lactate Dehydrogenase Total Protein 6.4 Albumin 3.9 Globulin 2.5 Albumin/Globulin Ratio 1.6 Triglycerides Medical - DS: A/P - Patient/Caregiver Discharge Instructions Activity: increase activity as tolerated Diet: Regular Diet Additional Instructions: Referral to see supervisor finishing room 5 to 10 days for upper GI bleed, possible need for pillcam study. Prescriptions: Omeprazole 40 mg PO QDAY #30 cap - Follow up Plan Follow up with: Jermaine Brandon MD [Primary Care Provider] - Disposition: Home, Self-Care Prognosis: Good Rehab Potential: Fair Overall status at discharge: patient is back to baseline Medical - DS: Qual - VTE Deep Vein Thrombosis/Pulmonary Embolism Present on Admission: No
[2019-05-14] MEDS: SUCRALFATE 1 GM/10 ML ORAL.SUSP PO SCH ×3 (00:34→12:58)
[2019-05-14] MEDS: LACTATED RINGERS 1,000 ML IV SCH (04:20)
[2019-05-14] MEDS: PANTOPRAZOLE 80 MG in 0.9 % SODIUM CHLORIDE 100 ML IV SCH (04:23)
[2019-05-14] MEDS: 0.9 % SODIUM CHLORIDE 10 ML SYRINGE IV SCH (05:07)
[2019-05-14 07:27] LABS: Basophils # (Auto) 0.05 K/mcL (0.00-0.30); Basophils % (Auto) 0.9 % (0.0-2.0); Eosinophils # (Auto) 0.05 K/mcL (0.00-0.70); Eosinophils % (Auto) 0.9 % (0.0-7.0); Granulocytes % (Auto) 61.5 % (38.0-78.0); Hematocrit 26.2 % (40.1-51.0); Lymphocytes # (Auto) 1.48 K/mcL (1.50-4.80); Lymphocytes % (Auto) 26.2 % (15.5-49.0); Mean Cell Volume 79.4 fL (80.0-100.0); Mean Corpuscular HGB Conc 30.5 g/dL (31.0-36.0); Mean Platelet Volume 9.3 fL (7.4-10.4); Monocytes # (Auto) 0.59 K/mcL (0.10-0.90); Monocytes % (Auto) 10.5 % (1.0-12.0); Platelet Count 257 K/mcL (140-440); Red Cell Distribution Width 20.7 % (11.5-14.5); WBC 5.6 K/mcL (4.50-11.00)
[2019-05-14 07:33] LABS: Calcium 8.4 mg/dl (8.6-10.4); Carbon Dioxide 26 mmol/L (22-30); Chloride 105 mmol/L (96-108); Glomerular Filtration Rate 92; Glucose 93 mg/dL (70-105)
--- NOTE | 2019-05-14 07:45 | Internal Med Progress Note ---
Medical - PN: Subj Patient information: Note initiated : 05/14/19 at 7:41 am Service Date, if different from initiated Date: [] Patient: Shaq George a 73 y/o M admitted on 05/13/19 for blood in vomit. Chief Complaint: [] Interval history: 05/11 Mr. George is a 73 year old M with a history of hypertension, hyperlipidemia, iron deficiency anemia who presents the ED with bloody emesis and dark stool. About the end of January, the patient was taking nonsteroidals for patellar tendon issue. Since that time he noticed that he had had cold hands and looked pale. He is also lightheaded and having headaches. This led to further investigation on 05/03 he was found to have a hemoglobin of 5.8, had a CT of the abdomen pelvis without evidence of mass or other concerning findings, and underwent transfusion of 4 units of packed red blood cells in the ED. His stool was heme-negative at that time. On 05/07 he was seen in follow-up and his hemoglobin is 9.8. Iron studies showed 5% saturation he was started on iron. Today the patient had taken his third dose of iron tablets. Tonight he was laying down, felt nauseated and got up to go to the bathroom. About skilled nursing there he was lightheaded, had loss of consciousness and fell to the floor. His came up and found him, she tried to assist him to his feet, but he is weak and subsequently had emesis with definite bright red blood mixed with gastric contents from his meal. He also had stool that was dark, his commented that it was quite smelly as well. He presents to the emergency department. Hemodynamics are stable. Hemoglobin is fallen 2 points to 7.8. Patient is being admitted for further evaluation of GI bleed. The patient has been taking ibuprofen to treat his headaches. He took 2 Aleve this evening prior to this event. He generally been taking about 1 nonsteroidal a day towards bedtime to help him sleep because of his chronic mild headache that is persisted. He used to take aspirin, that is been stopped. He is not on anticoagulants. He has no history of liver disease/cirrhosis or portal hypertension. He has had no abdominal pain associated with the events of the evening. He has no pain with meals. 05/12 No complaints. No abdominal pain. Has not passed any further stools. Hemoglobin is dropped to 6.7 today. Patient agreeable to further transfusion. Awaiting EGD. EGD with ge junction inflammation with superficial linear ulceration,fundic gland polyps;antral gastritis with erosions x3; mild duodenitis. No source of active bleeding or lesion felt to have cause large amount of bright red hematemesis. ?AVM 05/13 Slept all right. Feeling well. No new complaints. Hemoglobin dropped a little bit today to 8.0, suspected lesional component from continued IV fluids which have now been DC'd this morning. No melena/diarrhea/hematemesis. Review of Systems: denies headache/fever/chills/nausea/vomiting/chest or abdominal pain/cough/dyspnea. Otherwise see above. - Constitutional Vitals: Vital Signs Temp Pulse Resp BP Pulse Ox 98.4 F 79 14 126/72 98 05/14/19 04:23 05/14/19 04:23 05/14/19 04:23 05/14/19 04:23 05/14/19 04:23 Period Temp Pulse Resp BP Sys/Patel Pulse Ox Last 24 Hr 98.2 F-99.8 F 79-93 12-14 113-131/72-80 95-99 Intake and Output 05/13/19 05/14/19 05/14/19 21:59 05:59 13:59 Intake Total 720 1403 Output Total 800 600 Balance -80 803 Weight 89.046 kg Intake & Output: Intake & Output 05/13/19 05/14/19 05/14/19 21:59 05:59 13:59 Intake Total 720 1403 Output Total 800 600 Balance -80 803 Weight 89.046 kg Intake: IV 903 Lactated Ringers 1,000 ml @ 75 806 mls/hr IV .[id number] [facility] Rx#: [id number] Protonix 80 mg In Sodium 97 Chloride 0.9% 100 ml @ 8 MG/HR 10 mls/hr IV Q10H [facility] Rx#: [id number] Oral 720 500 Output: Void Amount 800 600 Other: Meal Dinner Percent of Meal Consumed 100% Urine Appearance Clear Clear Urine Color Bright Yellow Bright Yellow Urine Odor Normal Normal Exam: General: Alert, Awake, No acute Distress Eyes/N/T: EOMI, Head/Neck: neck supple, CV: RRR, No murmurs, Pulm: Clear b/l, no wheezing/rhonchi/rales Abd: soft, nontender, +BS x4 Ext: no clubbing/cyanosis/edema Neuro: Alert, no focal deficits, moves all extremities, Skin: warm/dry Medical - PN: Obj Da - Labs CBC & Chem 7: 05/14/19 06:05 05/14/19 06:05 Labs: Abnormal Lab Results 05/14/19 05/14/19 05/13/19 06:05 06:05 18:30 RBC 3.30 L Hgb 8.0 L 9.0 L Hct 26.2 L 29.0 L POC Hct MCV 79.4 L MCH 24.2 L MCHC 30.5 L RDW 20.7 H Lymph # (Auto) 1.48 L POC BUN BUN Glucose POC Glucose Calcium 8.4 L Total Protein Triglycerides 05/13/19 05/13/19 05/13/19 13:55 05:41 05:41 RBC 2.91 L Hgb 8.8 L 6.7 L* Hct 28.6 L 22.8 L POC Hct MCV 78.4 L MCH 23.0 L MCHC 29.4 L RDW 21.7 H Lymph # (Auto) 1.16 L POC BUN BUN 30 H Glucose 113 H POC Glucose Calcium 8.5 L Total Protein 5.7 L Triglycerides 158 H 05/12/19 05/12/19 22:13 22:13 RBC 3.32 L Hgb 7.8 L Hct 26.4 L POC Hct 26.0 L MCV 79.5 L MCH 23.5 L MCHC 29.5 L RDW 21.2 H Lymph # (Auto) 1.26 L POC BUN 25 H BUN 24 H Glucose 151 H POC Glucose 145 H Calcium 8.5 L Total Protein Triglycerides Meds: Medications Lactated Ringer's (Lactated Ringers) 1,000 mls @ 75 mls/hr IV .[id number] [facility] Last Admin: 05/14/19 04:20 Dose: 75 mls/hr Documented by: Pantoprazole Sodium 80 mg/ (Sodium Chloride) 100 mls @ 10 mls/hr IV Q10H [facility] Last Admin: 05/14/19 04:23 Dose: 8 mg/hr, 10 mls/hr Documented by: Ondansetron HCl (Zofran) 4 mg IV Q6HP PRN PRN Reason: Nausea And Vomiting Sodium Chloride (Saline Flush) 10 ml IV Q8 [facility] Last Admin: 05/14/19 05:07 Dose: Not Given Documented by: Sucralfate (Carafate) 1 gm PO Q6H [facility] Last Admin: 05/14/19 05:05 Dose: 1 gm Documented by: Medical - PN: A/P - Time Spent With Patient Total time spent is greater than 50% in coordination of care (as documented) at patient's floor/unit and/or counseling patient: - Narrative A/P Narrative: A: *Upper GI bleed: tommy hematemesis and on day of presentation, associated with lightheadedness and syncope when he arose to get to the bathroom -had taken 3 doses of iron prior to that. Stool was heme positive in the ED, scant stool in the rectal vault, per Dr. Ortiz. -Patient has been using NSAIDs for persistent low-grade headache, generally 1 dose a day. He does take omeprazole. -EGD with ge junction inflammation with superficial linear ulceration,fundic gland polyps;antral gastritis with erosions x3; mild duodenitis -?AVM *acute blood loss anemia: -2PRBC transfused first night -H&H dropped a bit this morning, but IVF's causing some dilutional effect *HTN: Patient's blood pressure is normal without tachycardia. Only on HCTZ for blood pressure at baseline. Plan: monitor H&H Protonix PO daily d/c IVF's, started full liquid diet last night Dr. Kline following f/u with GI for possible pillcam study -avoid NSAIDS -Prophylaxis: SCDs CODE STATUS: Full code Medical - PN: Qual - VTE Deep Vein Thrombosis/Pulmonary Embolism Present on Admission: No
[2019-05-14 07:47] LABS: Blood Urea Nitrogen 11 mg/dl (8-23)
[2019-05-14] MEDS ORDERED: PANTOPRAZOLE 40 MG TABLET PO ONE (08:06)
[2019-05-14] MEDS ORDERED: HYDROCHLOROTHIAZIDE 12.5 MG CAPSULE PO SCH (09:00)
--- NOTE | 2019-05-15 10:00 | Surgical Pathology Report ---
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 -- NO HELICOBACTER TYPE ORGANISMS IDENTIFIED (ALCIAN YELLOW STAIN WITH ADEQUATE TECHNICAL CONTROL). (RLF:sln) CLINICAL HISTORY Gastrointestinal bleeding with melena. PROCEDURAL IMPRESSION GE junction inflammation with superficial linear ulceration; fundic gland polyps; antral gastritis with erosions; mild duodenitis. GROSS DESCRIPTION Received in formalin labeled gastric antrum biopsy, are two scott tissue fragments 0.4 and 0.5 cm. Entirely submitted - one cassette. (SCB:sln) Electronically Signed by: Ava Morillo M.D.
--- NOTE | 2019-06-03 14:32 | Operative Note ---
DATE OF OPERATION: 05/13/2019 PREOPERATIVE DIAGNOSIS: Gastrointestinal bleeding with melena. POSTOPERATIVE DIAGNOSES: GE junction inflammation with superficial linear ulceration, fundic gland polyps, antral gastritis with erosions, and mild duodenitis. PROCEDURE: Esophagogastroduodenoscopy with biopsies and CLOtest. SURGEON: Daljit Kline M.D. FINDINGS: As noted above. No source of potential major bleed noted out to the fourth portions of the duodenum. DESCRIPTION OF PROCEDURE: Under general anesthesia, the patient was turned to the left lateral decubitus position. A bite block was placed. A time-out procedure was carried out as per protocol. The scope was introduced through the bite block into the retropharynx and esophagus. The esophagus was normal down to the GE junction. At the GE junction, there was some mild superficial inflammation with a superficial linear ulceration, but without bleeding. The GE junction opened appropriately. There are a few scattered fundic gland polyps in the fundus. In the body it was unremarkable except for minimal inflammation. In the antrum, there were three healing erosions and moderate inflammation. Pylorus was normal. Duodenum showed mild inflammation without ulceration. Second and third portions of the duodenum were normal. The scope was pulled back and retroflexed view was done. No other abnormality was seen except for the fundic gland polyps and mild inflammation. Biopsies were taken of the antrum for routine biopsy and CLOtest. This patient tolerated the procedure well. The scope was removed. The patient was awakened, transferred to a bed and taken to the postanesthetic care unit in stable, satisfactory condition. LCS:gerry Job ID: [id number] Doc ID: [id number] Daljit Kline M.D.
== END 2019-05-14 18:15 | disposition home or self-care (01) | DRG 378 ==
LOC: ED 21:56 → INTOOBSV 05-13 00:21 → MEDSUR 05-13 00:21
PROVIDERS: ADMIT Internal Medicine; ATTEND Internal Medicine

== ENCOUNTER 2022-03-11 19:06 | Inpatient (IN) ==
[2022-03-11] MEDS ORDERED: IOPAMIDOL 100 ML BOTTLE IV ONE (19:07)
[2022-03-11 19:51] LABS: POC Calcium, Ionized 1.15 (1.16-1.32); POC Potassium 3.3 (3.3-5.1)
[2022-03-11] MEDS ORDERED: FUROSEMIDE 20 MG/2 ML VIAL IV ONE (20:17)
[2022-03-11] MEDS ORDERED: ACETAMINOPHEN 325 MG TABLET PO ONE (20:17)
[2022-03-11] MEDS ORDERED: diphenhydrAMINE 50 MG/ML VIAL IV ONE (20:17)
[2022-03-11 20:27] LABS: Basophils # (Auto) 0.03 K/mcL (0.00-0.30); Basophils % (Auto) 0.7 % (0.0-2.0); Eosinophils # (Auto) 0.03 K/mcL (0.00-0.70); Eosinophils % (Auto) 0.7 % (0.0-7.0); Hematocrit 20.5 % (40.1-51.0); Hemoglobin 5.9 g/dL (13.7-17.5); Lymphocytes # (Auto) 1.38 K/mcL (1.50-4.80); Lymphocytes % (Auto) 31.9 % (15.5-49.0); Mean Cell Volume 97.2 fL (80.0-100.0); Mean Corpuscular HGB Conc 28.8 g/dL (31.0-36.0); Mean Platelet Volume 8.9 fL (8.8-12.5); Monocytes # (Auto) 0.49 K/mcL (0.10-0.90); Monocytes % (Auto) 11.3 % (1.0-12.0); Neutrophils % (Auto) 54.9 % (38.0-78.0); Platelet Count 291 K/mcL (140-440); RBC 2.11 M/mcL (4.63-6.08); Red Cell Distribution Width 14.4 % (11.5-14.5); WBC 4.3 K/mcL (4.5-11.0)
[2022-03-11 20:28] LABS: INR 0.9 (0.9-1.1); Prothrombin Time 12.8 sec (11.9-14.5)
[2022-03-11] MEDS ORDERED: PANTOPRAZOLE 40 MG VIAL IV ONE (20:37)
--- NOTE | 2022-03-11 20:44 | Emergency Department Note ---
GI Bleed HPI General Chief complaint: Recheck/Abnormal Lab/Rx Stated complaint: low Hgb 6.3 Time Seen by Provider: 03/11/22 20:16 Source: patient and family Mode of arrival: ambulatory Limitations: no limitations History of Present Illness HPI Narrative: Narrative: Patient presents ED after being sent over by his PCP for low hemoglobin level. Patient states that he has been weak, short of breath and just lethargic for the past week or so. He went to his PCP who checked his blood level and states that it was less than 7 advised him to come to the ED for further evaluation. Patient denies nausea, vomiting, abdominal pain, dysuria, hematuria, urinary frequency, diarrhea, melena, hematochezia, hematemesis, hemoptysis, connie trauma. Patient states he really does not know if there is blood in his stool as he does take iron pills. He states he has a history of a GI bleed that caused him to have a transfusion in the past. He is not on any blood thinners at this time. Does have a history of GERD and takes omeprazole every day. Patient denies any other alleviating or aggravating factors. Related Data Home Medications Medication Instructions Recorded Confirmed ferrous sulfate 325 mg (65 mg 325 mg PO QDAY 12/16/20 03/11/22 iron) tablet Previous Rx's Medication Instructions Recorded omeprazole 20 mg capsule,delayed 20 mg PO QDAY #90 caps 11/25/21 release hydrochlorothiazide 12.5 mg capsule 12.5 mg PO QDAY #90 caps 11/30/21 Allergies Allergy/AdvReac Type Severity Reaction Status Date / Time ezetimibe [From Zetia] Allergy Unknown Unknown Verified 03/11/22 14:35 fenofibrate Allergy Unknown Unknown Verified 03/11/22 14:35 Cuezfsl-YCZ-DsD Reductase Allergy Unknown Unknown Verified 03/11/22 14:35 Inhibitor [Tjlikpl-Cdf-Znf Reductase Inhibitor] hydrocodone AdvReac Mild Hallucinati Verified 03/11/22 14:35 ng Review of Systems ROS ROS Narrative: Narrative: All systems ED: reviewed and negative except as stated. [facility] Narrative Patient History Narrative: Narrative: Medical/Surgical/Family History All Active Problems (Updated 03/11/22 @ 23:22 by Isauro Flores DO) Acute GI bleeding (Acute) ABLA (acute blood loss anemia) (Acute) Fatigue (Acute) Anemia (Acute) Cough (Acute) Influenza A (Acute) Left knee injury (Acute) Right knee injury (Acute) Encounter for biopsy (Acute) Seborrheic keratosis (Acute) Annual physical exam (Acute) Medicare annual wellness visit, initial (Acute) Iron deficiency anemia due to chronic blood loss (Acute) Upper GI bleeding (Acute) Patella, chondromalacia (Chronic) History of vasectomy (Chronic) History of prostate biopsy (Chronic) Prostate cancer (Chronic) Lipoma (Chronic) Closed fracture of lower leg (Chronic) Hypertension, essential, benign (Chronic) Hyperlipidemia (Chronic) Gastroesophageal reflux (Chronic) Colon polyps (Chronic) Basal cell carcinoma (Chronic 03/21/13) Medical History Annual physical exam Basal cell carcinoma (03/21/13) Skin above left ear. Closed fracture of lower leg Unspecified bone R leg Colon polyps Encounter for biopsy Gastroesophageal reflux Hyperlipidemia Hypertension, essential, benign Left knee injury Lipoma 06/01/12 ([place]) Back Medicare annual wellness visit, initial Patella, chondromalacia Prostate cancer Seborrheic keratosis Surgical History History of colonoscopy (07/04/19) 05/27/10 History of prostate biopsy Radiation seed therapy History of vasectomy Family History Mother , at 77y Chronic obstructive pulmonary disease Father , 50yoa Coronary artery disease Myocardial Infarction Social History Smoking Status: Never smoker Alcohol Intake Frequency: 0-2 drinks per day Substance Use: does not use Exam Narrative Narrative: Narrative: General Limitations: no limitations General appearance: Absent in distress ENT ENT: Present normal oropharynx and mucous membranes moist Respiratory Respiratory: Present normal lung sounds bilaterally; Absent respiratory distress Cardiovascular Cardiovascular: Present normal rhythm and tachycardia Adbominal Abdominal: Present soft and normal bowel sounds; Absent tenderness Rectal Rectal: Present heme (+) stool (Weakly positive and could be false positive due to iron supplementation); Absent hemorrhoids Extremities Extremities: Present normal inspection and normal capillary refill Neurological Neurological: Present oriented X3 and normal gait Psychiatric Psychiatric: Present normal affect and normal mood Skin Skin: Present intact and pallor Course Course Course Narrative: Patient was evaluated for decreased hemoglobin level. Hemoglobin here in the ED was 5.9 consistent with acute blood loss anemia. Hemoccult was loosely positive but patient is on a iron supplement which could skew the test. 2 units of packed red blood cells have been ordered and patient typed and crossed. He was hemodynamically stable maintain adequate ox saturation on room air with appropriate blood pressure. Patient was given IV Protonix [address] abdomen pelvis obtained with a GI series with image reviewed myself with no active bleeding. Case was discussed with our on-call surgeon who states that as long as patient remained stable with no source of active bleed he is willing to be consulted on the case for possible upper and lower endoscopy at the beginning of the week again as long as patient is hemodynamic stable. Case was discussed wit h hospitalist who has reluctantly agreed to accept the patient. Normally this would not be an appropriate admission since we do not have any GI bleed interventional options but due to the fact that we have not been able to find a bed at any other facility with GI capability he is willing to admit the patient. Again it should be noted that we have called over 20 facilities within our [facility] and outside of our [facility] to try to find patient appropriate GI care unfortunately there are no beds available. Plan of care was discussed with patient he expressed verbal understanding and agreement. Reevaluation(s) Reevaluation #1: Patient remains hemodynamically stable. No new complaints at this time. Time: 21:20 Consultations Consultation #1: Case discussed with on-call surgeon, Dr. Jones, who states that it is reasonable to admit the patient since he does not seem to have any active bleeding at this time. He does state that he is willing to do upper and lower endoscopy as the patient remains hemodynamically stable. However he does state that if patient starts to have any hematemesis, hematochezia or "moving melena a nd patient would have to be shipped out to another facility that has interventional capabilities. Time: 22:55 Consultation #2: Case discussed with hospitalist, Dr. Muir, who has accepted the patient for admission. He expresses that this is not an appropriate admission as we do not have any way to intervene with this patient but due to the fact that we do not have any beds to transfer this patient to that he would be willing to reluctantly admit the patient. We greatly appreciate his service. Time: 23:10 Vital Signs Vital signs: Vital Signs Temperature 97.8 F 03/11/22 19:07 Pulse Rate 104 H 03/11/22 19:07 Respiratory Rate 17 03/11/22 19:07 Blood Pressure 119/72 03/11/22 19:07 Pulse Oximetry (%) 99 03/11/22 19:07 Oxygen Delivery Method 03/11/22 19:07 Temperature 97.8 F 03/11/22 19:07 Pulse Rate 97 H 03/11/22 21:23 Respiratory Rate 21 03/11/22 22:40 Blood Pressure 135/88 03/11/22 22:40 Pulse Oximetry (%) 98 03/11/22 22:40 Oxygen Delivery Method 03/11/22 19:07 MDM MDM Narrative Medical decision making narrative: Narrative: Differential Diagnosis Differential Diagnosis: Acute blood loss anemia, GI bleed Medical Records Medical records reviewed: Yes I reviewed the patient's medical records. Lab Data Lab results reviewed: Yes I reviewed the patient's lab results. Result diagrams: 03/11/22 19:33 Labs: Lab Results 03/11/22 03/11/22 03/11/22 Range/Units 19:33 19:33 19:48 WBC 4.3 L (4.5-11.0) K/mcL RBC 2.11 L (4.63-6.08) M/mcL Hgb 5.9 L* (13.7-17.5) g/dL Hct 20.5 L* (40.1-51.0) % POC Hct 21.0 L (41-55) MCV 97.2 (80.0-100.0) fL MCH 28.0 (26.0-34.0) pg MCHC 28.8 L (31.0-36.0) g/dL RDW 14.4 (11.5-14.5) % Plt Count 291 (140-440) K/mcL MPV 8.9 (8.8-12.5) fL Immature Gran % (Auto) 0.5 (0.0-0.5) % Neut % (Auto) 54.9 (38.0-78.0) % Lymph % (Auto) 31.9 (15.5-49.0) % [place] % (Auto) 11.3 (1.0-12.0) % Eos % (Auto) 0.7 (0.0-7.0) % Baso % (Auto) 0.7 (0.0-2.0) % Lymph # (Auto) 1.38 L (1.50-4.80) K/mcL [place] # (Auto) 0.49 (0.10-0.90) K/mcL Eos # (Auto) 0.03 (0.00-0.70) K/mcL Baso # (Auto) 0.03 (0.00-0.30) K/mcL Immature Gran # 0.02 (0.00-0.05) K/mcl Absolute Neutrophils 2.38 (1.80-8.00) K/mcL PT 12.8 (11.9-14.5) sec INR 0.9 (0.9-1.1) POC Sodium 139 (133-145) POC Potassium 3.3 (3.3-5.1) POC Chloride 101 (96-108) POC Total CO2 27.0 (22-30) POC BUN 10 (6-20) POC Creatinine 1.0 (0.6-1.2) POC Glucose 84 (70-105) POC WB Ioniz Calcium 1.15 L (1.16-1.32) ED POC Tests ED POC Tests: BEAR - Influenza A Negative BEAR - Influenza B Negative BEAR - SARS Antigen Negative Radiology Data Radiology results reviewed: Yes I reviewed the patient's radiology results. Radiology results narrative: CT abdomen pelvis obtained with image reviewed myself, no acute intra-abdominal findings. EKG Data EKG #1: EKG attestation: Yes I reviewed and interpreted this EKG. EKG shows normal: sinus rhythm Rate: normal Rhythm: NSR [place]/QRS: RBBB Voltage: c/w LVH Heart block present: None ST segment elevation in: None ST segment depression in: None QTc: normal QRS morphology: Present normal Interpretation: no acute changes Core Measures AMI Core Measures Followed: Yes Discharge Plan Patient/Caregiver Discharge Instructions Pt seen by DISPATCH OFFICER/PA only: No Clinical Impression: Acute GI bleeding, ABLA (acute blood loss anemia) Patient Disposition: Xfer As Outpt/Obs ([facility]) Condition: Fair Follow up with: Jermaine Brandon MD [Primary Care Provider] - Prescriptions: No Action omeprazole 20 mg capsule,delayed release(DR/EC) 20 mg PO QDAY Qty: 90 1RF hydrochlorothiazide 12.5 mg capsule 12.5 mg PO QDAY Qty: 90 1RF ferrous sulfate 325 mg (65 mg iron) tablet 325 mg PO QDAY
[2022-03-11] MEDS ORDERED: 0.9 % SODIUM CHLORIDE 1,000 ML IV ONE (23:24)
--- NOTE | 2022-03-11 23:26 | Internal Med History&Physical ---
HPI History of Present Illness Patient information: Note initiated : 03/11/22 at 11:23 pm Service Date, if different from initiated Date: [] Patient: Shaq George 76 y/o M admitted on for low Hgb 6.3. Chief Complaint: [] History of present illness: Mr. George is a 76 year old male with a history of hypertension, iron deficiency anemia, prior GI bleed who was admitted for acute on chronic anemia. The patient says that he has been experiencing fatigue, especially exertional fatigue for several weeks culminating in a visit to his primary care provider and routine labs which showed a significant decrease in hemoglobin from 10.8 in January to 6.3. In the emergency department, the patient was hemodynamically stable. A CTA abdomen pelvis was performed and reportedly did not show any source of bleeding however the final radiology report is still pending at the time of admission. Review of systems Constitutional: Positive for fatigue, denies fevers chills Eyes: no vision changes or pain Cardiovascular: no chest pain, no palpitations Respiratory: Positive for exertional dyspnea Gastrointestinal: no abdominal pain, no nausea, vomiting, or diarrhea Genitourinary: no dysuria or difficulty voiding Musculoskeletal: no arthralgia or myalgia Integumentary: no skin lesion or wound Neurological: no focal weakness or numbness Psychiatric: no anxiety or depression Physical exam Head: Atraumatic, normal inspection. Eyes: normal appearance, no scleral icterus. Neck: full ROM Respiratory: no respiratory distress. Cardiovascular: normal rate and rhythm, S1, S2. GI/Abdominal: soft, nontender, no guarding. Extremities: full range of motion, nontender. Neurological: CN II-XII intact, intact motor, intact sensation. Psychiatric: normal mood. Skin: warm, normal color PFSH PFSH All Active Problems (Updated 03/11/22 @ 23:22 by Isauro Flores DO) Acute GI bleeding (Acute) ABLA (acute blood loss anemia) (Acute) Fatigue (Acute) Anemia (Acute) Cough (Acute) Influenza A (Acute) Left knee injury (Acute) Right knee injury (Acute) Encounter for biopsy (Acute) Seborrheic keratosis (Acute) Annual physical exam (Acute) Medicare annual wellness visit, initial (Acute) Iron deficiency anemia due to chronic blood loss (Acute) Upper GI bleeding (Acute) Patella, chondromalacia (Chronic) History of vasectomy (Chronic) History of prostate biopsy (Chronic) Prostate cancer (Chronic) Lipoma (Chronic) Closed fracture of lower leg (Chronic) Hypertension, essential, benign (Chronic) Hyperlipidemia (Chronic) Gastroesophageal reflux (Chronic) Colon polyps (Chronic) Basal cell carcinoma (Chronic 03/21/13) Medical History Annual physical exam Basal cell carcinoma (03/21/13) Skin above left ear. Closed fracture of lower leg Unspecified bone R leg Colon polyps Encounter for biopsy Gastroesophageal reflux Hyperlipidemia Hypertension, essential, benign Left knee injury Lipoma 06/01/12 ([place]) Back Medicare annual wellness visit, initial Patella, chondromalacia Prostate cancer Seborrheic keratosis Surgical History History of colonoscopy (07/04/19) 05/27/10 History of prostate biopsy Radiation seed therapy History of vasectomy Family History Mother , at 77y Chronic obstructive pulmonary disease Father , 50yoa Coronary artery disease Myocardial Infarction Social History (Updated 12/16/20 @ 09:23 by Jennifer Younger CMA) marital status: education level: college occupational status: retired other: 2 children/2 gc smoking status: Never smoker alcohol intake frequency: 0-2 drinks per day substance use type: does not use MEDS/ALLERGIES Home Medications and Allergies Home Medications Medication Instructions Recorded Confirmed Type ferrous sulfate 325 mg (65 mg 325 mg PO QDAY 12/16/20 03/12/22 History iron) tablet omeprazole 20 mg capsule,delayed 20 mg PO QDAY #90 caps 11/25/21 03/12/22 Rx release hydrochlorothiazide 12.5 mg capsule 12.5 mg PO QDAY #90 caps 11/30/21 03/12/22 Rx Allergies Allergy/AdvReac Type Severity Reaction Status Date / Time ezetimibe [From Zetia] Allergy Unknown Unknown Verified 03/12/22 00:31 fenofibrate Allergy Unknown Unknown Verified 03/12/22 00:31 Zjhdjwd-ALV-MzX Reductase Allergy Unknown Unknown Verified 03/12/22 00:31 Inhibitor [Pgdblwq-Erq-Mxx Reductase Inhibitor] hydrocodone AdvReac Mild Hallucinati Verified 03/12/22 00:31 ng EXAM Constitutional Vitals: Temp Pulse Resp BP Pulse Ox O2 Del Method 97.8 F 97 H 21 135/88 98 03/11/22 19:07 03/11/22 21:23 03/11/22 22:40 03/11/22 22:40 03/11/22 22:40 03/11/22 19:07 DATA Data Completed and Pending Labs: Labs from last 24 hours 03/11/22 03/11/22 03/11/22 19:48 19:33 19:33 WBC 4.3 L RBC 2.11 L Hgb 5.9 L* Hct 20.5 L* POC Hct 21.0 L MCV 97.2 MCH 28.0 MCHC 28.8 L RDW 14.4 Plt Count 291 MPV 8.9 Immature Gran % (Auto) 0.5 Neut % (Auto) 54.9 Lymph % (Auto) 31.9 [place] % (Auto) 11.3 Eos % (Auto) 0.7 Baso % (Auto) 0.7 Lymph # (Auto) 1.38 L [place] # (Auto) 0.49 Eos # (Auto) 0.03 Baso # (Auto) 0.03 Immature Gran # 0.02 Absolute Neutrophils 2.38 PT 12.8 INR 0.9 POC Sodium 139 POC Potassium 3.3 POC Chloride 101 POC Total CO2 27.0 POC BUN 10 POC Creatinine 1.0 POC Glucose 84 POC WB Ioniz Calcium 1.15 L A/P Narrative A/P Narrative: Assessment: 76 year old male with history of hypertension, iron deficiency anemia, GI bleed admitted for acute on chronic anemia and concern for another GI bleed who was unable to transfer to a higher level of care due to limited regional bed capacity admitted to [facility] hospital for blood transfusion, close monitoring, and general surgery evaluation. GI is currently not available at [facility] however there are no other options at that time but to admit to [facility]. Regional hospitals that have been contacted include [facility] hospitals, [facility], [facility], [facility], and [facility] in [place], [place]. #Acute on chronic iron deficiency anemia #Concern for upper GI bleed #Essential hypertension #History of GI bleed Plan -Type and screen. -Transfuse 2 units RBC in ED. -Trend hemoglobin, transfuse for hemoglobin < 7 or symptomatic anemia. -Protonix infusion. -Venofer IV daily for goal of 10 gm total then oral iron supplementation. -Check LDH and Haptoglobin. -Check stool H Pylori antigen. -Follow up pending CT abdomen/pelvis report. -General surgery consult. -Clear liquid diet for possible endoscopic work-up. -DVT ppx: SCDs Time Spent With Patient Time: Total time spent is greater than 50% in coordination of care (as documented) at patient's floor/unit and/or counseling patient:
[2022-03-11] MEDS ORDERED: 0.9 % SODIUM CHLORIDE 250 ML IV SCH (23:45)
[2022-03-12 00:04] LABS: Lactate Dehydrogenase 123 U/L (135-225)
[2022-03-12] MEDS ORDERED: ONDANSETRON 4 MG/2 ML VIAL IV PRN (00:29)
[2022-03-12] MEDS ORDERED: ACETAMINOPHEN 325 MG TABLET PO PRN (00:29)
[2022-03-12] MEDS ORDERED: SENNOSIDES 1 TABLET PO PRN (00:29)
[2022-03-12] MEDS ORDERED: LACTULOSE 20 GM/30 ML ORAL.SOL PO PRN (00:29)
[2022-03-12] MEDS ORDERED: PANTOPRAZOLE 40 MG VIAL IV ONE (00:53)
[2022-03-12] MEDS: PANTOPRAZOLE 80 MG in 0.9 % SODIUM CHLORIDE 100 ML IV SCH ×3 (01:03→20:54)
[2022-03-12 01:18] LABS: Haptoglobin 187 mg/dL (30-200)
[2022-03-12] MEDS: 0.9 % SODIUM CHLORIDE 10 ML SYRINGE IV SCH ×3 (05:29→20:55)
[2022-03-12 07:16] LABS: ALT/SGPT 10 U/L (<40); AST/SGOT 16 U/L (<40); Albumin 3.6 gm/dL (3.2-5.2); Albumin/Globulin Ratio 1.4 (1.0-2.3); Alkaline Phosphatase 62 U/L (39-117); Bilirubin,Direct < 0.2 mg/dL (0-0.3); Bilirubin,Total 0.4 mg/dL (0.1-1.0); Blood Urea Nitrogen 9 mg/dL (8-23); Calcium 8.5 mg/dL (8.6-10.4); Carbon Dioxide 26 mmol/L (22-30); Chloride 105 mmol/L (96-108); Globulin 2.6 gm/dL (2.2-3.7); Glomerular Filtration Rate 90; Glucose 100 mg/dL (70-105); Lactate Dehydrogenase 141 U/L (135-225); Phosphorous 3.2 mg/dL (2.5-4.5); Triglycerides 101 mg/dL (<150); Uric Acid 6.9 mg/dL (2.5-8.0)
[2022-03-12] MEDS: IRON SUCROSE COMPLEX 100 MG/5 ML VIAL IV SCH (08:12)
--- NOTE | 2022-03-12 10:19 | Cat Scan Report ---
History: Anemia, gastrointestinal bleeding, fatigue, short of breath and prior prostate cancer TECHNIQUE: Patient was imaged before and after intravenous nonionic contrast scanning from the diaphragm to the symphysis pubis. Sagittal and coronal reformats were created along with coronal MIPS images. Radiation exposure was limited using dose reduction technology. FINDINGS: Minor dependent atelectasis is present in both lung bases. There is a noncalcified 6 mm nodule in the lateral basal segment of the left lower lobe. This has not enlarged since prior CT done on 05/03/19 and is most likely a granuloma. There are a few scattered cysts in the liver. Largest is located high in the right lobe beneath the capsule. It measures 2.5 cm. It measured 6 cm on the prior CT. No solid mass is seen within the liver and the overall size liver is normal. The gallbladder is relatively small. There are no gallstones or thickening of the wall. The bile ducts are nondilated. The spleen is normal in size and homogeneous. There is no evidence of a mass or inflammation in the pancreas. The adrenals are normal and symmetric. There are couple small cysts in both kidneys. There is mild cortical scarring medially in the upper pole of the left kidney, overlying a 1.1 cm cyst. No solid mass is present in either kidney. There is a nonobstructing 1 mm calculus within a calyx in the middle third of the left kidney. No hydronephrosis is present. The urinary bladder appears normal. There are numerous radiation implant seeds in the prostate. Prostate is normal in size. There is no apparent prostate mass or infiltration of the periprostatic fat. Seminal vesicles are relatively small and symmetric. No adenopathy or ascites are present in the abdomen or pelvis. The stomach and small intestine are normal. Normal quantity of stool is present in the large intestine. There are few scattered diverticula in the distal descending and sigmoid colon. There is no acute diverticulitis. No mass is seen within the intestinal tract. The postcontrast view show no abnormal enhancement in or adjacent to the bowel to explain the GI bleeding. There are scattered plaques along the wall of the aorta and iliac arteries. Aorta is normal in caliber. There is no evidence of arterial stenosis within the abdomen or pelvis.. There is a small zone of streakiness of the mesenteric fat. It is located left of midline in the mid abdomen. There is no associated adenopathy. This has developed since 05/03/19. This may be a nonspecific inflammatory reaction. The bone windows show no lytic or blastic metastasis. There is mild arthritis in the spine. IMPRESSION: Few diverticula in the distal large bowel but without evidence of diverticulitis. There is no evidence of active gastrointestinal bleeding. The source of the blood loss is not identified on this study. Shrinking cyst in the right lobe of liver stable small cysts in both kidneys.. Tiny nonobstructing stone in the left kidney Nonspecific mild inflammation in the mesenteric fat, left of midline, seen on series 6 image 48 Interpreted and Authenticated by: Kevin Be 03/12/22
--- NOTE | 2022-03-12 19:05 | General Surgery Consult Note ---
HPI Date of Consult Consult Date: 03/12/22 Requesting physician: Endy Aguillon Primary Care Provider: Jermaine Brandon MD Consult Narrative Patient Information: Note initiated : 03/12/22 at 7:01 pm Service Date, if different from initiated Date: [] Patient: Shaq George a 76 y/o M admitted on 03/12/22 for low Hgb 6.3. Chief Complaint: [] Shaq is seen in consultation today after admission through the ER last night for severe anemia secondiary to a presumed Upper GI Bleed. He last underwent Upper, Lower as well as Capsule Endoscopy for a similar situation back in 2019. He was found to have gastric and esophageal erosions as a possible source of bleeding at that time and apparently had been using higher dose NSAIDs. He has been on a daily PPI as well as supplemental Iron therapy. He was admitted, placed in the ICU and has received 2 units of PRBCs per staff. He has not had hematemesis, diarrheal stools or hematochezia. His stool was reported as faintly guiac positive in the ER. He drinks daily in the 3-5 beer range per his report. His Hbg has responded appropriately to transfusion and he has not been in any way hemodynamically unstable Chief complaint: Anemia Reason for consult: GI Bleed cc:: CC: Endy Aguillon MD Review of Systems All systems: reviewed and no additional remarkable complaints except as stated Review of systems: Review of systems Constitutional: Positive for fatigue, denies fevers chills Eyes: no vision changes or pain Cardiovascular: no chest pain, no palpitations Respiratory: Positive for exertional dyspnea Gastrointestinal: no abdominal pain, no nausea, vomiting, or diarrhea Genitourinary: no dysuria or difficulty voiding Musculoskeletal: no arthralgia or myalgia Integumentary: no skin lesion or wound Neurological: no focal weakness or numbness Psychiatric: no anxiety or depression PFSH PFSH All Active Problems Acute GI bleeding (Acute) ABLA (acute blood loss anemia) (Acute) Fatigue (Acute) Anemia (Acute) Cough (Acute) Influenza A (Acute) Left knee injury (Acute) Right knee injury (Acute) Encounter for biopsy (Acute) Seborrheic keratosis (Acute) Annual physical exam (Acute) Medicare annual wellness visit, initial (Acute) Iron deficiency anemia due to chronic blood loss (Acute) Upper GI bleeding (Acute) Patella, chondromalacia (Chronic) History of vasectomy (Chronic) History of prostate biopsy (Chronic) Prostate cancer (Chronic) Lipoma (Chronic) Closed fracture of lower leg (Chronic) Hypertension, essential, benign (Chronic) Hyperlipidemia (Chronic) Gastroesophageal reflux (Chronic) Colon polyps (Chronic) Basal cell carcinoma (Chronic 03/21/13) Medical History Annual physical exam Basal cell carcinoma (03/21/13) Skin above left ear. Closed fracture of lower leg Unspecified bone R leg Colon polyps Encounter for biopsy Gastroesophageal reflux Hyperlipidemia Hypertension, essential, benign Left knee injury Lipoma 06/01/12 ([facility]) Back Medicare annual wellness visit, initial Patella, chondromalacia Prostate cancer Seborrheic keratosis Surgical History History of colonoscopy (07/04/19) 05/27/10 History of prostate biopsy Radiation seed therapy History of vasectomy Family History Mother , at 77y Chronic obstructive pulmonary disease Father , 50yoa Coronary artery disease Myocardial Infarction Social History marital status: education level: college occupational status: retired other: 2 children/2 gc smoking status: Never smoker alcohol intake frequency: 0-2 drinks per day substance use type: does not use MEDS/ALLERGIES Home Medications and Allergies Home Medications Medication Instructions Recorded Confirmed Type ferrous sulfate 325 mg (65 mg 325 mg PO QDAY 12/16/20 03/12/22 History iron) tablet omeprazole 20 mg capsule,delayed 20 mg PO QDAY #90 caps 11/25/21 03/12/22 Rx release hydrochlorothiazide 12.5 mg capsule 12.5 mg PO QDAY #90 caps 11/30/21 03/12/22 Rx Allergies Allergy/AdvReac Type Severity Reaction Status Date / Time ezetimibe [From Zetia] Allergy Unknown Unknown Verified 03/12/22 00:31 fenofibrate Allergy Unknown Unknown Verified 03/12/22 00:31 [id number]-GXR-TaN Reductase Allergy Unknown Unknown Verified 03/12/22 00:31 Inhibitor [Uffkgzl-Nxm-Ehy Reductase Inhibitor] hydrocodone AdvReac Mild Hallucinati Verified 03/12/22 00:31 ng Physical Examination Vital Signs Vital signs: Temp Pulse Resp BP Pulse Ox O2 Del Method 98.4 F 88 17 111/65 96 03/12/22 16:00 03/12/22 18:01 03/12/22 18:01 03/12/22 18:01 03/12/22 18:01 03/12/22 00:01 General physical appearance General physical exam: other (looks well, pleasantly conversant ) Eyes Eye exam: PERRL and normal ocular movement ENT ENT exam: normal pinna and normal nares Head Head exam IM: Present atraumatic, normal inspection and normocephalic Neck Neck exam: trachea midline and no lymphadenopathy Cardiovascular Cardiovascular exam IM: Present normal rate and rhythm and RRR Respiratory Respiratory exam: other (normal effort without distress ) Abdomen Abdomen: Present soft (soft and non tender, non distended, no mass or hernia noted ) Integumentary Integumentary: Present other (normal appearing intact skin ) Neurologic Neurologic: Present other (grossly intact ) Psychiatric Psychiatric: Present oriented to person, oriented to place and speech is normal Results Labs Result diagrams: 03/12/22 12:26 03/12/22 05:20 Labs: Abnormal lab results 03/11/22 03/11/22 03/11/22 Range/Units 19:33 19:48 19:48 WBC 4.3 L (4.5-11.0) K/mcL RBC 2.11 L (4.63-6.08) M/mcL Hgb 5.9 L* (13.7-17.5) g/dL Hct 20.5 L* (40.1-51.0) % POC Hct 21.0 L (41-55) MCHC 28.8 L (31.0-36.0) g/dL Lymph # (Auto) 1.38 L (1.50-4.80) K/mcL Calcium (8.6-10.4) mg/dL POC WB Ioniz Calcium 1.15 L (1.16-1.32) Lactate Dehydrogenase 123 L (135-225) U/L 03/12/22 03/12/22 03/12/22 Range/Units 05:20 05:21 12:26 WBC (4.5-11.0) K/mcL RBC (4.63-6.08) M/mcL Hgb 8.2 L 8.2 L (13.7-17.5) g/dL Hct (40.1-51.0) % POC Hct (41-55) MCHC (31.0-36.0) g/dL Lymph # (Auto) (1.50-4.80) K/mcL Calcium 8.5 L (8.6-10.4) mg/dL POC WB Ioniz Calcium (1.16-1.32) Lactate Dehydrogenase (135-225) U/L Diabetes panel 03/12/22 Range/Units 05:20 Sodium 142 (133-145) mmol/L Potassium 3.4 (3.3-5.1) mmol/L Chloride 105 (96-108) mmol/L Carbon Dioxide 26 (22-30) mmol/L BUN 9 (8-23) mg/dL Creatinine 0.7 (0.7-1.2) mg/dL Glucose 100 (70-105) mg/dL Calcium 8.5 L (8.6-10.4) mg/dL AST 16 (<40) U/L ALT 10 (<40) U/L Alkaline Phosphatase 62 (39-117) U/L Total Protein 6.2 (5.9-8.4) gm/dL Albumin 3.6 (3.2-5.2) gm/dL Triglycerides 101 (<150) mg/dL Calcium panel 03/12/22 Range/Units 05:20 Calcium 8.5 L (8.6-10.4) mg/dL Phosphorus 3.2 (2.5-4.5) mg/dL Albumin 3.6 (3.2-5.2) gm/dL Pituitary panel 03/12/22 Range/Units 05:20 Sodium 142 (133-145) mmol/L Potassium 3.4 (3.3-5.1) mmol/L Chloride 105 (96-108) mmol/L Carbon Dioxide 26 (22-30) mmol/L BUN 9 (8-23) mg/dL Creatinine 0.7 (0.7-1.2) mg/dL Glucose 100 (70-105) mg/dL Calcium 8.5 L (8.6-10.4) mg/dL Adrenal panel 03/12/22 Range/Units 05:20 Sodium 142 (133-145) mmol/L Potassium 3.4 (3.3-5.1) mmol/L Chloride 105 (96-108) mmol/L Carbon Dioxide 26 (22-30) mmol/L BUN 9 (8-23) mg/dL Creatinine 0.7 (0.7-1.2) mg/dL Glucose 100 (70-105) mg/dL Calcium 8.5 L (8.6-10.4) mg/dL Total Bilirubin 0.4 (0.1-1.0) mg/dL AST 16 (<40) U/L ALT 10 (<40) U/L Alkaline Phosphatase 62 (39-117) U/L Total Protein 6.2 (5.9-8.4) gm/dL Albumin 3.6 (3.2-5.2) gm/dL All other labs normal. A/P Assessment and plan (1) Acute GI bleeding: Assessment and plan: Upper GI Bleed without evidence of active or further ongoing losses Agree with serial Hbg checks along with high dose PPIs If he remains clinically well without further evidence of blood loss, then he can likely be discharged on higher dose PPIs, avoidance of further alcohol and NSAID use along with plans for expedited outpatient EGD and possible Colonoscopy. If he develops any evidence of signifcant ongoing hemorrhage, then transfer for GI consultation and management may be required Will follow along with you for now Status: Acute Time Spent With Patient Time: Total time spent is greater than 50% in coordination of care (as documented) at patient's floor/unit and/or counseling patient:
[2022-03-13] MEDS: 0.9 % SODIUM CHLORIDE 10 ML SYRINGE IV SCH ×2 (05:50→12:06)
[2022-03-13] MEDS: PANTOPRAZOLE 80 MG in 0.9 % SODIUM CHLORIDE 100 ML IV SCH (07:01)
[2022-03-13 07:27] LABS: ALT/SGPT 10 U/L (<40); AST/SGOT 16 U/L (<40); Albumin 3.4 gm/dL (3.2-5.2); Albumin/Globulin Ratio 1.4 (1.0-2.3); Alkaline Phosphatase 61 U/L (39-117); Bilirubin,Direct < 0.2 mg/dL (0-0.3); Bilirubin,Total 0.4 mg/dL (0.1-1.0); Blood Urea Nitrogen 6 mg/dL (8-23); Calcium 8.6 mg/dL (8.6-10.4); Carbon Dioxide 27 mmol/L (22-30); Chloride 104 mmol/L (96-108); Globulin 2.5 gm/dL (2.2-3.7); Glomerular Filtration Rate 90; Glucose 93 mg/dL (70-105); Lactate Dehydrogenase 125 U/L (135-225); Triglycerides 100 mg/dL (<150)
[2022-03-13] MEDS: IRON SUCROSE COMPLEX 100 MG/5 ML VIAL IV SCH (08:26)
[2022-03-13] MEDS ORDERED: PANTOPRAZOLE 40 MG VIAL IV SCH (08:30)
[2022-03-13] MEDS ORDERED: IRON SUCROSE COMPLEX 100 MG/5 ML VIAL IV ONE ×2 (10:14→17:00)
--- NOTE | 2022-03-13 10:24 | Discharge Summary ---
Discharge Provider Provider IMPORTANT FOLLOW-UP INFORMATION FOR PCP: Patient information: Note initiated : 03/13/22 at 10:21 am Service Date, if different from initiated Date: [] Patient: Shaq George 76 y/o M admitted on 03/12/22 for low Hgb 6.3. Chief Complaint: [] Date of admission: 03/12/22 00:12 Discharge date: 03/13/22 Primary care physician: Jermaine Brandon MD Consults: 03/11/22 Consult to Physician [CONS] Stat Comment: Consulting Provider: Endy Aguillon Reason For Exam: Physician to Consult 03/12/22 00:29 Consult to Physician [CONS] Stat Comment: Consulting Provider: Pramod Jones Reason For Exam: Physician to Consult COURSE Hospital Course Hospital course: Mr. George is a 76 year old male with a history of hypertension, iron deficiency anemia, prior GI bleed who was admitted for acute on chronic anemia. The patient says that he has been experiencing fatigue, especially exertional fatigue for several weeks culminating in a visit to his primary care provider and routine labs which showed a significant decrease in hemoglobin from 10.8 in January to 6.3. In the emergency department, the patient was hemodynamically stable. A CTA abdomen pelvis was performed and reportedly did not show any source of bleeding however the final radiology report is still pending at the time of admission. 03/13 Stable overnight, hemoglobin trend has been stable. General surgery and did not want to perform endoscopic work-up. General surgery feels the patient can discharge on higher dose of PPIs with outpatient GI follow-up for EGD and possible colonoscopy. Patient was discharged on Protonix 40 mg twice daily, continued oral iron supplementation but changed to every other day dosing for better absorption. The patient did receive an extra dose of Venofer prior to discharge for total of 600 mg of IV Venofer during this hospitalization. Physical exam Head: Atraumatic, normal inspection. Eyes: normal appearance, no scleral icterus. Neck: full ROM Respiratory: no respiratory distress. Cardiovascular: normal rate and rhythm, S1, S2. GI/Abdominal: soft, nontender, no guarding. Extremities: full range of motion, nontender. Neurological: CN II-XII intact, intact motor, intact sensation. Psychiatric: normal mood. Skin: warm, normal color Discharge diagnosis: Acute on chronic iron deficiency anemia Time Spent with Patient Time attestation: Total time spent providing and/or coordinating discharge services: Time spent: Less than 30 minutes EXAM Constitutional Vitals: Temp Pulse Resp BP Pulse Ox O2 Del Method O2 Flow Rate 98.5 F 77 19 117/65 97 0 03/13/22 08:01 03/13/22 10:01 03/13/22 10:01 03/13/22 10:01 03/13/22 10:01 03/13/22 00:00 03/13/22 00:00 Discharge Data Data Completed and Pending Labs on day of discharge: Labs from last 24 hours 03/13/22 03/13/22 03/13/22 05:25 05:24 05:24 Hgb 8.2 L Sodium 138 Potassium 3.3 Chloride 104 Carbon Dioxide 27 Anion Gap 7.0 L BUN 6 L Creatinine 0.7 GFR Calculation 90 Glucose 93 Uric Acid 7.0 Calcium 8.6 Phosphorus 3.0 Magnesium 2.1 Total Bilirubin 0.4 Direct Bilirubin < 0.2 GGT 16 AST 16 ALT 10 Alkaline Phosphatase 61 Lactate Dehydrogenase 125 L Total Protein 5.9 Albumin 3.4 Globulin 2.5 Albumin/Globulin Ratio 1.4 Triglycerides 100 Vitamin B12 Pending 03/13/22 03/12/22 03/12/22 00:10 18:56 12:26 Hgb 8.0 L 8.2 L 8.2 L Sodium Potassium Chloride Carbon Dioxide Anion Gap BUN Creatinine GFR Calculation Glucose Uric Acid Calcium Phosphorus Magnesium Total Bilirubin Direct Bilirubin GGT AST ALT Alkaline Phosphatase Lactate Dehydrogenase Total Protein Albumin Globulin Albumin/Globulin Ratio Triglycerides Vitamin B12 Discharge Plan Patient/Caregiver Discharge Instructions Activity: increase activity as tolerated Diet: Regular Diet Prescriptions: New pantoprazole [Protonix] 40 mg tablet,delayed release (DR/EC) 40 mg PO BID 28 Days Qty: 56 2RF ferrous sulfate 325 mg (65 mg iron) tablet 325 mg PO .every other day Qty: 90 3RF Continued hydrochlorothiazide 12.5 mg capsule 12.5 mg PO QDAY Qty: 90 1RF Discontinued omeprazole 20 mg capsule,delayed release(DR/EC) 20 mg PO QDAY Qty: 90 1RF ferrous sulfate 325 mg (65 mg iron) tablet 325 mg PO QDAY Follow Up Plan Follow up with: Bernardo Barrera MD [Physician] - (Post hospital follow-up for acute on chronic iron deficiency anemia.) Jermaine Brandon MD [Primary Care Provider] - Patient Disposition: Home, Self-Care Prognosis: Fair Overall status at discharge: patient is progressing back to baseline Discharge Orders: Discharge Order (Routine); Ordered 03/13/22 Ordered By: Endy Aguillon
[2022-03-14] MEDS ORDERED: IRON SUCROSE COMPLEX 400 MG in 0.9 % SODIUM CHLORIDE 250 ML IV ONE (09:00)
--- NOTE | 2022-03-15 21:00 | EKG ---
[facility] Test Date: 2022-03-11 Pat Name: Shaq George Department: ED Room: Gender: Male Dietician: SS : 1945 Requested By: Isauro Flores Order Number: [id number] Reading MD: Tony Dash Measurements Intervals [place] Rate: 96 P: 49 OR: 213 QRS: -54 QRSD: 106 T: 24 QT: 400 QTc: 505 Interpretive Statements Sinus rhythm Borderline prolonged OR interval Incomplete RBBB and LAFB Consider right ventricular hypertrophy Prolonged QT interval Electronically Signed On 03-15-2022 20:59:51 PST by Tony Dash /store/[id number]
== END 2022-03-13 13:10 | disposition home or self-care (01) | DRG 812 ==
LOC: ED 19:06 → ICU 03-12 00:12
PROVIDERS: ADMIT Internal Medicine; ATTEND Internal Medicine

== ENCOUNTER 2023-02-03 18:18 | Observation (INO) ==
[2023-02-03 18:36] LABS: POC Calcium, Ionized 1.19 (1.16-1.32); POC Creatinine 0.9 (0.6-1.2); POC Potassium 4.3 (3.3-5.1)
[2023-02-03] MEDS ORDERED: 0.9 % SODIUM CHLORIDE 1,000 ML IV ONE (18:37)
[2023-02-03 19:32] LABS: Basophils # (Auto) 0.04 K/mcL (0.00-0.30); Basophils % (Auto) 0.5 % (0.0-2.0); Eosinophils # (Auto) 0 K/mcL (0.00-0.70); Eosinophils % (Auto) 0 % (0.0-7.0); Hematocrit 29.9 % (40.1-51.0); Lymphocytes # (Auto) 0.31 K/mcL (1.50-4.80); Lymphocytes % (Auto) 3.5 % (15.5-49.0); Mean Cell Volume 97.4 fL (80.0-100.0); Mean Corpuscular HGB Conc 30.1 g/dL (31.0-36.0); Mean Platelet Volume 9.1 fL (8.8-12.5); Monocytes # (Auto) 0.46 K/mcL (0.10-0.90); Monocytes % (Auto) 5.3 % (1.0-12.0); Neutrophils % (Auto) 90.5 % (38.0-78.0); Platelet Count 261 K/mcL (140-440); RBC 3.07 M/mcL (4.63-6.08); WBC 8.7 K/mcL (4.5-11.0)
[2023-02-03 19:51] LABS: ALT/SGPT 11 U/L (<40); AST/SGOT 14 U/L (<40); Albumin 3.7 gm/dL (3.2-5.2); Alkaline Phosphatase 74 U/L (39-117); Bilirubin,Direct < 0.2 mg/dL (0-0.3); Bilirubin,Total 0.2 mg/dL (0.1-1.0); Globulin 2.4 gm/dL (2.2-3.7)
[2023-02-03] MEDS ORDERED: PANTOPRAZOLE 40 MG VIAL IV ONE (20:10)
[2023-02-03] MEDS ORDERED: ONDANSETRON 4 MG/2 ML VIAL IV PRN (20:10)
[2023-02-03] MEDS: PANTOPRAZOLE 80 MG in 0.9 % SODIUM CHLORIDE 100 ML IV SCH (20:29)
[2023-02-03] MEDS ORDERED: 0.9 % SODIUM CHLORIDE 250 ML IV SCH (21:00)
[2023-02-03] MEDS: 0.9 % SODIUM CHLORIDE 1,000 ML IV SCH (23:28)
[2023-02-04 05:25] LABS: Appearance,Urine CLEAR (Clear); Bilirubin,Urine Negative (Negative); Color,Urine STRAW; Culture Indicated,Urine No; Glucose,Urine (UA) Negative (Negative); Ketones,Urine 20 mg/dL (Negative); Leukocyte Esterase,Urine Negative /uL (Negative); Nitrate,Urine Negative (Negative); Protein,Urine Negative (Negative); Specific Gravity,Urine 1.018 (1.000-1.035); Urine Blood Negative (Negative); Urobilinogen,Urine Negative
[2023-02-04] MEDS ORDERED: PANTOPRAZOLE 40 MG VIAL IV ONE ×2 (05:41→16:03)
[2023-02-04] MEDS: PANTOPRAZOLE 80 MG in 0.9 % SODIUM CHLORIDE 100 ML IV SCH ×2 (05:49→17:33)
[2023-02-04] MEDS: 0.9 % SODIUM CHLORIDE 1,000 ML IV SCH ×4 (05:56→20:00)
[2023-02-04 07:18] LABS: Basophils # (Auto) 0.03 K/mcL (0.00-0.30); Basophils % (Auto) 0.4 % (0.0-2.0); Eosinophils # (Auto) 0 K/mcL (0.00-0.70); Eosinophils % (Auto) 0 % (0.0-7.0); Hematocrit 26.4 % (40.1-51.0); Hemoglobin 7.9 g/dL (13.7-17.5); Lymphocytes # (Auto) 0.66 K/mcL (1.50-4.80); Lymphocytes % (Auto) 9.3 % (15.5-49.0); Mean Cell Volume 97.8 fL (80.0-100.0); Mean Corpuscular HGB Conc 29.9 g/dL (31.0-36.0); Mean Platelet Volume 9.4 fL (8.8-12.5); Monocytes % (Auto) 9.9 % (1.0-12.0); Neutrophils % (Auto) 80.1 % (38.0-78.0); Platelet Count 260 K/mcL (140-440); Red Cell Distribution Width 22.6 % (11.5-14.5); WBC 7.1 K/mcL (4.5-11.0)
[2023-02-04 07:40] LABS: Prothrombin Time 13.9 sec (11.9-14.5)
[2023-02-04] MEDS ORDERED: 0.9 % SODIUM CHLORIDE 250 ML IV SCH (10:00)
[2023-02-04] MEDS: SUCRALFATE 1 GM/10 ML ORAL.SUSP PO SCH (18:05)
[2023-02-04 20:31] LABS: Basophils # (Auto) 0.05 K/mcL (0.00-0.30); Eosinophils # (Auto) 0.02 K/mcL (0.00-0.70); Eosinophils % (Auto) 0.4 % (0.0-7.0); Hemoglobin 8.9 g/dL (13.7-17.5); Lymphocytes # (Auto) 1.24 K/mcL (1.50-4.80); Lymphocytes % (Auto) 23.6 % (15.5-49.0); Mean Cell Volume 96.7 fL (80.0-100.0); Mean Corpuscular HGB Conc 30.7 g/dL (31.0-36.0); Monocytes # (Auto) 0.75 K/mcL (0.10-0.90); Monocytes % (Auto) 14.3 % (1.0-12.0); Neutrophils % (Auto) 60.5 % (38.0-78.0); Platelet Count 207 K/mcL (140-440); Red Cell Distribution Width 21.4 % (11.5-14.5); WBC 5.3 K/mcL (4.5-11.0)
[2023-02-05] MEDS: SUCRALFATE 1 GM/10 ML ORAL.SUSP PO SCH ×2 (00:26→05:26)
[2023-02-05] MEDS: 0.9 % SODIUM CHLORIDE 1,000 ML IV SCH (06:07)
[2023-02-05 06:27] LABS: Basophils # (Auto) 0.04 K/mcL (0.00-0.30); Basophils % (Auto) 0.9 % (0.0-2.0); Eosinophils # (Auto) 0.04 K/mcL (0.00-0.70); Eosinophils % (Auto) 0.9 % (0.0-7.0); Hematocrit 30.2 % (40.1-51.0); Hemoglobin 9.3 g/dL (13.7-17.5); Lymphocytes # (Auto) 1.16 K/mcL (1.50-4.80); Lymphocytes % (Auto) 24.8 % (15.5-49.0); Mean Cell Volume 95.3 fL (80.0-100.0); Mean Corpuscular HGB Conc 30.8 g/dL (31.0-36.0); Mean Platelet Volume 9.1 fL (8.8-12.5); Monocytes # (Auto) 0.46 K/mcL (0.10-0.90); Monocytes % (Auto) 9.9 % (1.0-12.0); Neutrophils % (Auto) 63.1 % (38.0-78.0); Platelet Count 225 K/mcL (140-440); RBC 3.17 M/mcL (4.63-6.08); Red Cell Distribution Width 20.9 % (11.5-14.5); WBC 4.7 K/mcL (4.5-11.0)
[2023-02-05 07:05] VITALS: TEMP 97.9
[2023-02-05] MEDS ORDERED: PANTOPRAZOLE 40 MG VIAL IV ONE (07:05)
[2023-02-05] MEDS: PANTOPRAZOLE 80 MG in 0.9 % SODIUM CHLORIDE 100 ML IV SCH (07:17)
[2023-02-05 09:56] VITALS: O2SAT 98
[2023-02-05] MEDS ORDERED: FLUZONE HD QS2023-24/PF 240 MCG/0.7 ML SYRINGE IM ONE (10:00)
[2023-02-05] MEDS ORDERED: LIDOCAINE 2% PF 5 ML VIAL IJ ONE (11:01)
[2023-02-05] MEDS ORDERED: PROPOFOL 200 MG/20 ML VIAL IV ONE (11:01)
== END 2023-02-05 12:02 | disposition home or self-care (01) ==
LOC: MEDSUR 18:18 → ED 18:18 → MEDSUR 21:45
PROVIDERS: ADMIT Family Medicine Adult Medicine; ATTEND Family Medicine Adult Medicine